=== PATIENT | male | born 1935 | race Caucasian/White ===

== ENCOUNTER → 2016-08-14 | Outpatient (REF) | payer MEDICARE | LOC: M LAB REF 12:20 | PROVIDERS: ATTEND Physician Assistant Medical | DX: J02.9 Acute pharyngitis, unspecified (principal) ==

== ENCOUNTER → 2016-09-20 07:20 | Emergency (ER) | payer MEDICARE ==
[~2016-09-20 07:20] MED LIST: ASPI81TA85 PO; CIPR500T3 PO; COLA100C3 PO; MULT1CHW39 PO; OXYC1TAB23 PO; PYRI200T5 PO; TAMSULOSIN; VITA100037 PO
== END | disposition left against medical advice (07) ==
LOC: M ED 07:20
DX: Z53.29 Procedure and treatment not carried out because of patient's decision for other reasons (principal)

== ENCOUNTER 2016-09-20 07:22 | Emergency (ER) | payer MEDICARE ==
[~2016-09-20] VITALS: Ht 170.2 cm; Wt 73.6 kg
[2016-09-20] MEDS ORDERED: TAMSULOSIN (07:35)
[2016-09-20] MEDS ORDERED: ASPI81TA85 PO (07:35)
[2016-09-20] MEDS ORDERED: MORPHINE 2 MG/ML 1ML SYRINGE IV ONE (09:00)
[2016-09-20 09:38] LABS: BASO % 0.3 % (0.0-1.0); EOS # 0.1 K/mm3 (0.0-0.50); EOS % 0.9 % (0.0-3.0); LARGE UNSTAINED CELL # 0.1 K/mm3 (0.0-0.4); LARGE UNSTAINED CELL % 0.6 % (0.0-4.0); LYMPH % 6.2 % (24.0-44.0); MEAN CORPUSCULAR HEMOGLOBIN 30.6 pg (27.0-33.0); MEAN CORPUSCULAR HGB CONC 33.4 g/dl (32.0-36.5); MEAN CORPUSCULAR VOLUME 91.6 fl (80.0-96.0); MONO # 0.7 K/mm3 (0.0-0.8); MONO % 4.3 % (0.0-5.0); NEUTROPHILS # 13.4 K/mm3 (1.8-7.7); NEUTROPHILS % 87.6 % (36.0-66.0); PLATELET COUNT, AUTOMATED 191 k/mm3 (150-450); RED CELL DISTRIBUTION WIDTH 12.7 % (11.5-14.5); WHITE BLOOD COUNT 15.2 K/mm3 (4.0-10.0)
[2016-09-20 09:54] LABS: ANION GAP 5 MEQ/L (8-16); BLOOD UREA NITROGEN 14 MG/DL (7-18); CALCIUM LEVEL 9.9 MG/DL (8.8-10.2); CARBON DIOXIDE LEVEL 29 MEQ/L (21-32); CHLORIDE LEVEL 102 MEQ/L (98-107); CREATININE FOR GFR 1.17 MG/DL (0.70-1.30); GLOMERULAR FILTRATION RATE > 60.0 (>35); GLUCOSE, FASTING 119 MG/DL (83-110); SODIUM LEVEL 136 MEQ/L (136-145)
--- NOTE | 2016-09-20 10:16 | REP ---
CT ABDOMEN AND PELVIS WITHOUT CONTRAST: CT abdomen and pelvis performed without oral or IV contrast, with sagittal and coronal reconstruction images performed. COMPARISON: 07/04/2011 There are a couple calcified granulomas in the right lower lobe. There are mild interstitial fibrotic changes in the right middle lobe. There is a small hiatal hernia. The liver is grossly unremarkable. Metallic clips are seen in the gallbladder fossa, status post cholecystectomy. Calcified granulomas are seen in the spleen. The adrenals and pancreas are grossly unremarkable. The kidneys demonstrate no stone. There does appear to be mild left hydroureteronephrosis. However, there is no evidence of ureteral or bladder stone. This is possibly due to a recently passed stone. There are moderate atherosclerotic calcifications of the abdominal aorta without aneurysm. There is no adenopathy. There is no free air. There is no bowel thickening. There is no evidence of appendicitis. A tiny amount of free fluid is seen in the pelvis. There is no pelvic mass. There are degenerative changes of the spine. There is sigmoid diverticulosis without definite acute diverticulitis. IMPRESSION: Mild left hydroureteronephrosis. However, there is no evidence of renal, ureteral or bladder calculus. The left hydroureteronephrosis is likely due to a recently passed stone. No other acute abnormality. Signed by Adrian Ivy MD 09/20/2016 05:19 P
[2016-09-20] MEDS ORDERED: cefTRIAXone SOD 1 GM in D5W MINI-BAG PLUS 50 ML IV ONE (10:30)
[2016-09-20] MEDS ORDERED: OXYC1TAB23 PO (10:42)
[2016-09-20] MEDS ORDERED: COLA100C3 PO (10:44)
[2016-09-20] MEDS ORDERED: PYRI200T5 PO (10:45)
[2016-09-20] MEDS ORDERED: CIPR500T3 PO (11:24)
[2016-09-20 11:41] VITALS: BP 141/62
[2016-09-20] MEDS ORDERED: ACETAMINOPHEN TAB 650MG DOSE (2X325MG) PO ONE (11:45)
[2016-09-21] MEDS ORDERED: MULT1CHW39 PO (10:18)
[2016-09-21] MEDS ORDERED: VITA100037 PO (10:18)
== END 2016-09-20 12:07 | disposition home or self-care (01) ==
LOC: M ED 08:17
DX: N39.0 Urinary tract infection, site not specified (principal); N13.30 Unspecified hydronephrosis; Z95.0 Presence of cardiac pacemaker; Z79.82 Long term (current) use of aspirin; Z88.5 Allergy status to narcotic agent
CPT/HCPCS: 74176; 80048; 81001; 85025; 87088; 87186; 96365; 96375; 99283; J0696

== ENCOUNTER 2016-09-21 10:04 | Emergency (ER) | payer MEDICARE ==
[~2016-09-21] VITALS: Ht 170.2 cm; Wt 74.9 kg
[~2016-09-21 10:04] MED LIST changes: -MULT1CHW39 PO; -VITA100037 PO
[2016-09-21] MEDS ORDERED: VITA100037 PO (10:18)
[2016-09-21] MEDS ORDERED: MULT1CHW39 PO (10:18)
[2016-09-21 11:34] LABS: BASO % 0.3 % (0.0-1.0); EOS # 0.2 K/mm3 (0.0-0.50); EOS % 1.7 % (0.0-3.0); LARGE UNSTAINED CELL # 0.2 K/mm3 (0.0-0.4); LARGE UNSTAINED CELL % 1.2 % (0.0-4.0); LYMPH # 1.6 K/mm3 (1.5-4.5); LYMPH % 10.1 % (24.0-44.0); MEAN CORPUSCULAR HEMOGLOBIN 30.5 pg (27.0-33.0); MEAN CORPUSCULAR HGB CONC 33.4 g/dl (32.0-36.5); MEAN CORPUSCULAR VOLUME 91.4 fl (80.0-96.0); MONO # 0.7 K/mm3 (0.0-0.8); MONO % 4.9 % (0.0-5.0); NEUTROPHILS # 11.6 K/mm3 (1.8-7.7); NEUTROPHILS % 81.7 % (36.0-66.0); PLATELET COUNT, AUTOMATED 177 k/mm3 (150-450); RED CELL DISTRIBUTION WIDTH 12.9 % (11.5-14.5); WHITE BLOOD COUNT 14.2 K/mm3 (4.0-10.0)
[2016-09-21 11:35] LABS: MICROSCOPIC INDICATED? MAN YES (NO)
[2016-09-21 11:47] LABS: ANION GAP 4 MEQ/L (8-16); BLOOD UREA NITROGEN 17 MG/DL (7-18); CALCIUM LEVEL 9.5 MG/DL (8.8-10.2); CARBON DIOXIDE LEVEL 31 MEQ/L (21-32); CHLORIDE LEVEL 103 MEQ/L (98-107); CREATININE FOR GFR 1.22 MG/DL (0.70-1.30); GLOMERULAR FILTRATION RATE > 60.0 (>35); GLUCOSE, FASTING 97 MG/DL (83-110); POTASSIUM SERUM 4.2 MEQ/L (3.5-5.1); SODIUM LEVEL 138 MEQ/L (136-145)
--- NOTE | 2016-09-21 12:10 | REP ---
Urinary tract sonography: History: Reassess hydronephrosis on the left seen on recent CT scan 09/20/2016. Sonographic findings: Scanning at the level of the urinary bladder shows no abnormality. Renal cortical echogenicity pattern is normal and renal contours are smooth bilaterally. There is no evidence of hydronephrosis on either side by ultrasound. No intrarenal stone, mass or calculus is appreciated. The right kidney measures 9.6 x 5.2 x 6.0 cm. Left renal dimensions are 10.0 x 4.7 x 4.9 cm. Impression: No hydronephrosis seen. Unremarkable urinary tract sonography. Signed by Emilio Díaz MD 09/21/2016 12:45 P
[2016-09-21 12:21] LABS: SQUAMOUS EPITHELIAL CELL URINE SMALL AMOUNT /hpf (SMALL AMT); TRANSITIONAL EPI CELLS, URINE SMALL AMOUNT /hpf; WBC, URINE TNTC /hpf (0-3)
[2016-09-21 12:22] LABS: BACTERIA, URINE SMALL AMOUNT; HYALINE CAST, URINE NONE SEEN /lpf (0-1); MICROSCOPIC EXAM PERFORMED
[2016-09-21 12:44] VITALS: BP 146/69
== END 2016-09-21 12:53 | disposition home or self-care (01) ==
LOC: M ED 10:47
DX: N10 Acute pyelonephritis (principal); N40.1 Benign prostatic hyperplasia with lower urinary tract symptoms; Z95.0 Presence of cardiac pacemaker; Z79.82 Long term (current) use of aspirin; Z90.49 Acquired absence of other specified parts of digestive tract; Z79.899 Other long term (current) drug therapy; Z88.5 Allergy status to narcotic agent

== ENCOUNTER → 2016-10-14 | Outpatient (REF) | payer MEDICARE ==
[~2016-10-14] MED LIST changes: -COLA100C3 PO; +COLA100C5 PO; +FINA5TAB2 PO; +FLOM5CAP PO; +MULT1CHW39 PO; +OMEP40CA2 PO; +PYRI1TAB5 PO; -PYRI200T5 PO; +VITA100067 PO
== END ==
LOC: M SMT 11:43
PROVIDERS: ATTEND Urology
DX: N39.0 Urinary tract infection, site not specified (principal)

== ENCOUNTER 2016-12-05 07:53 | Outpatient (CLI) | payer MEDICARE ==
[~2016-12-05] VITALS: Ht 170.2 cm; Wt 72.6 kg
[2016-12-05] MEDS ORDERED: LIDOCAINE 2% INJ 100 MG/5 ML SDV (FOR ANES.) As Ordered ONE (08:37)
[2016-12-05] MEDS ORDERED: PROPOFOL 500 MG/50 ML VIAL As Ordered ONE (08:37)
[2016-12-05] MEDS ORDERED: LR 1,000 ML IV SCH (08:45)
--- NOTE | 2016-12-05 10:06 | ROOR ---
Patient Name: Troy Vale Procedure Date: 12/05/2016 9:30 AM Date of : 1935 Age: 81 Room: [facility] Gender: Male Note Status: Finalized Procedure: Upper GI endoscopy Indications: Dysphagia Providers: Raymundo Smith MD Referring MD: LUMA HARDIN MD Requesting Provider: Medicines: Monitored Anesthesia Care Complications: No immediate complications. Procedure: Pre-Anesthesia Assessment: - Prior to the procedure, a History and Physical was performed, and patient medications and allergies were reviewed. The patient is competent. The risks and benefits of the procedure and the sedation options and risks were discussed with the patient. All questions were answered and informed consent was obtained. Patient identification and proposed procedure were verified by the physician, the nurse and the anesthesiologist in the procedure room. Mental Status Examination: alert and oriented. Airway Examination: normal oropharyngeal airway and neck mobility. CV Examination: regular rate and rhythm. Prophylactic Antibiotics: The patient does not require prophylactic antibiotics. Prior Anticoagulants: The patient has taken no previous anticoagulant or antiplatelet agents. ASA Grade Assessment: II - A patient with mild systemic disease. After reviewing the risks and benefits, the patient was deemed in satisfactory condition to undergo the procedure. The anesthesia plan was to use monitored anesthesia care (MAC). Immediately prior to administration of medications, the patient was re-assessed for adequacy to receive sedatives. The heart rate, respiratory rate, oxygen saturations, blood pressure, adequacy of pulmonary ventilation, and response to care were monitored throughout the procedure. The physical status of the patient was re-assessed after the procedure. The Endoscope was introduced through the mouth, and advanced to the second part of duodenum. The upper GI endoscopy was accomplished without difficulty. The patient tolerated the procedure well. Findings: One moderate benign-appearing, intrinsic stenosis was found 40 cm from the incisors. This measured 1.5 cm (inner diameter) x less than one cm (in length) and was traversed. A TTS dilator was passed through the scope. Dilation with an 18-19-20 mm balloon dilator was performed to 20 mm. The dilation site was examined and showed no bleeding, mucosal tear or perforation. Estimated blood loss was minimal. The entire examined stomach was normal. The first portion of the duodenum and second portion of the duodenum were normal. Impression: - Benign-appearing esophageal stenosis. Dilated. - Normal stomach. - Normal first portion of the duodenum and second portion of the duodenum. - No specimens collected. Recommendation: - Discharge patient to home. - Resume previous diet. - Recommend acid suppression medication indefinitely. Raymundo Smith MD 12/05/2016 10:05:49 AM Number of Addenda: 0 Note Initiated On: 12/05/2016 9:30 AM Estimated Blood Loss: Estimated blood loss was minimal.
[2016-12-05 10:20] VITALS: BP 133/72
== END 2016-12-05 10:35 | disposition home or self-care (01) ==
LOC: M OPP 07:53
PROVIDERS: ATTEND Surgery
DX: R13.10 Dysphagia, unspecified (principal); K22.2 Esophageal obstruction; K57.30 Diverticulosis of large intestine without perforation or abscess without bleeding; E11.9 Type 2 diabetes mellitus without complications; K44.9 Diaphragmatic hernia without obstruction or gangrene; R00.8 Other abnormalities of heart beat; Z87.440 Personal history of urinary (tract) infections; Z87.442 Personal history of urinary calculi; Z95.0 Presence of cardiac pacemaker; Z88.5 Allergy status to narcotic agent; Z79.82 Long term (current) use of aspirin; Z79.899 Other long term (current) drug therapy

== ENCOUNTER → 2017-11-28 | Outpatient (REF) | payer MEDICARE | LOC: M LAB REF 12:56 | DX: J02.9 Acute pharyngitis, unspecified (principal) | CPT/HCPCS: 87081 ==

== ENCOUNTER → 2018-01-23 | Outpatient (CLI) | payer MEDICARE | LOC: M WUC 11:44 | DX: M54.31 Sciatica, right side (principal) | CPT/HCPCS: 72110 ==

== ENCOUNTER → 2018-10-22 | Outpatient (CLI) | payer MEDICARE ==
[~2018-10-22] MED LIST changes: +ASPI81CH33 PO; +FLOM0.4C39 PO; -FLOM5CAP PO; -MULT1CHW39 PO; +MULT200T7 PO; +MULTTAB62 PO; +NITR0.4D6 TD; +NITR0.4S14 SL; +OMEP-218 PO; +PEG1POW PO; +VITA1TAB23 PO; +VITA400C56 PO; +VITACRE10 EX; +VITAD1000T PO
--- NOTE | 2018-10-22 11:14 | REP ---
Acute abdominal series three views including PA chest and supine upright abdomen: PA chest: Comparison is 12/15/2009. The lung moran are clear. Cardiac size is normal. The le, mediastinum, skeletal structures are unremarkable. There is a dual-chamber pacemaker, unchanged. There is no free subdiaphragmatic air. Impression: Essentially negative PA and lateral chest. There is no interval change. Abdomen, supine upright views: The bowel gas pattern is normal. There are right upper quadrant surgical clips. There are skin lance superimposed over the right hip. There are surgical clips in the pelvis. There is an ovoid 1.2 by 7.0 cm calculus in the pelvis on the right, likely a phlebolith. This is not within the right ureter on a a comparison CT dated 09/20/2016, and is likely a phlebolith. Impression: Normal bowel gas pattern. Electronically Signed by Adrian Hudson MD 10/22/2018 11:05 A
== END ==
LOC: M ADAMS 10:00
PROVIDERS: ATTEND Physician Assistant
DX: K59.00 Constipation, unspecified (principal); R10.84 Generalized abdominal pain; Z95.0 Presence of cardiac pacemaker

== ENCOUNTER → 2018-10-22 | Outpatient (CLI) | payer MEDICARE ==
[2018-10-22 13:06] LABS: BASO % 0.2 % (0.0-1.0); EOS # 0.1 10^3/uL (0.0-0.50); EOS % 0.8 % (0.0-3.0); LYMPH # 1.8 10^3/uL (1.5-4.5); LYMPH % 13.9 % (24.0-44.0); MEAN CORPUSCULAR HEMOGLOBIN 30.4 pg (27.0-33.0); MEAN CORPUSCULAR HGB CONC 32.6 g/dl (32.0-36.5); MEAN CORPUSCULAR VOLUME 93.1 fl (80.0-96.0); MONO # 1.1 10^3/uL (0.0-0.8); MONO % 8.5 % (0.0-5.0); NEUTROPHILS # 9.7 10^3/uL (1.8-7.7); NEUTROPHILS % 76.1 % (36.0-66.0); PLATELET COUNT, AUTOMATED 251 10^3/uL (150-450); RED BLOOD COUNT 4.94 10^6/uL (4.30-6.10); WHITE BLOOD COUNT 12.8 10^3/uL (4.0-10.0)
[2018-10-22 13:16] LABS: ALBUMIN 3.9 GM/DL (3.2-5.2); ALT/SGPT 20 U/L (12-78); BILIRUBIN,TOTAL 0.7 MG/DL (0.2-1.0); BLOOD UREA NITROGEN 15 MG/DL (7-18); CALCIUM LEVEL 9.2 MG/DL (8.8-10.2); CARBON DIOXIDE LEVEL 30 MEQ/L (21-32); CHLORIDE LEVEL 106 MEQ/L (98-107); GLOMERULAR FILTRATION RATE > 60.0 (>35); GLUCOSE, FASTING 123 MG/DL (70-100); POTASSIUM SERUM 4.9 MEQ/L (3.5-5.1); SODIUM LEVEL 140 MEQ/L (136-145); TOTAL PROTEIN 6.8 GM/DL (6.4-8.2)
== END ==
LOC: M LABDRWAD 10:03
PROVIDERS: ATTEND Physician Assistant
DX: K59.00 Constipation, unspecified (principal); R10.84 Generalized abdominal pain

== ENCOUNTER 2018-10-23 14:37 | Inpatient (IN) | payer MEDICARE ==
[~2018-10-23] VITALS: Ht 170.2 cm; Wt 72.9 kg
[~2018-10-23 14:37] MED LIST changes: -ASPI81CH33 PO; -MULTTAB62 PO; -NITR0.4S14 SL; -OMEP-218 PO; -PEG1POW PO; -VITA400C56 PO; -VITAD1000T PO
[2018-10-23] MEDS ORDERED: OMEP-218 PO (14:54)
[2018-10-23] MEDS ORDERED: PEG1POW PO (14:54)
[2018-10-23] MEDS ORDERED: NS 1,000 ML IV ONE (16:00)
[2018-10-23] MEDS ORDERED: ONDANSETRON 4MG/2ML VIAL (J2405) IV ONE (16:00)
[2018-10-23] MEDS: GASTROGRAFIN SOLUTION 30ML PO SCH ×2 (16:17→16:54)
[2018-10-23 16:29] LABS: BASO # 0.1 10^3/uL (0.0-0.2); BASO % 0.3 % (0.0-1.0); EOS % 0.1 % (0.0-3.0); HEMATOCRIT 45.5 % (42.0-52.0); LYMPH % 12.9 % (24.0-44.0); MEAN CORPUSCULAR HEMOGLOBIN 30.4 pg (27.0-33.0); MEAN CORPUSCULAR VOLUME 92.3 fl (80.0-96.0); MONO # 1.5 10^3/uL (0.0-0.8); MONO % 9.9 % (0.0-5.0); NEUTROPHILS # 11.6 10^3/uL (1.8-7.7); PLATELET COUNT, AUTOMATED 238 10^3/uL (150-450); RED BLOOD COUNT 4.93 10^6/uL (4.30-6.10); WHITE BLOOD COUNT 15.3 10^3/uL (4.0-10.0)
[2018-10-23 16:55] LABS: ALBUMIN 3.6 GM/DL (3.2-5.2); BILIRUBIN,DIRECT 0.6 MG/DL (0.0-0.2); CREATININE FOR GFR 1.37 MG/DL (0.70-1.30); GLOMERULAR FILTRATION RATE 52.6 (>35); POTASSIUM SERUM 4.5 MEQ/L (3.5-5.1); TOTAL PROTEIN 6.8 GM/DL (6.4-8.2)
[2018-10-23] MEDS ORDERED: ISOVUE-370 76% 100ML VIAL (Q9967) As Ordered ONE (17:12)
--- NOTE | 2018-10-23 18:23 | REPVR ---
EXAM: CT Abdomen and Pelvis With Contrast EXAM DATE/TIME: 10/23/2018 5:51 PM CLINICAL HISTORY: 83 years old, male; Constipation; Abdominal pain; Additional info: Left sided abd pain, no bm in 7 days, R/O sbo TECHNIQUE: Imaging protocol: Axial computed tomography images of the abdomen and pelvis with intravenous contrast. Coronal and sagittal reformatted images were created and reviewed. Radiation optimization: All CT scans at this facility use at least one of these dose optimization techniques: automated exposure control; mA and/or kV adjustment per patient size (includes targeted exams where dose is matched to clinical indication); or iterative reconstruction. Contrast material: ISOVUE 370; Contrast volume: 100 ml; Contrast route: IV; COMPARISON: DX ABDOMEN, FLAT/UPRIGHT, PA CHES 10/22/2018 9:54 AM FINDINGS: Lungs: There is bibasilar compressive atelectasis. Liver: There is a diffuse decrease in hepatic parenchymal density, consistent with fatty infiltration. Gallbladder and bile ducts: There has been a cholecystectomy. Pancreas: There is diffuse pancreatic atrophy. Spleen: Normal. No splenomegaly. Adrenals: Normal. No mass. Kidneys and ureters: Normal. No hydronephrosis. Stomach and bowel: Gross mesenteric inflammation between bowel loops in the left upper quadrant with an extraluminal soft tissue and gas collection measuring 2.5 cm consistent with an interloop abscess possibly related to localized perforation or small bowel diverticulitis. Bowel sutures demonstrated in the distal colon status post sigmoid resection. Appendix: No evidence of appendicitis. Intraperitoneal space: Normal. No free air. No significant fluid collection. Vasculature: No abdominal aortic aneurysm. Moderate atherosclerosis. Lymph nodes: Numerous inflammatory lymph nodes are demonstrated in the regional mesentery in the left upper quadrant measuring up to 10 mm. Bladder: Unremarkable as visualized. Reproductive: The prostate gland demonstrates mild hyperplasia. Bones/joints: Mild central spinal stenosis at L4-5.The spine demonstrates moderate degenerative changes. Soft tissues: Unremarkable. IMPRESSION: 1. There is a diffuse decrease in hepatic parenchymal density, consistent with fatty infiltration. 2. There has been a cholecystectomy. 3. There is diffuse pancreatic atrophy. 4. Gross mesenteric inflammation between bowel loops in the left upper quadrant with an extraluminal soft tissue and gas collection measuring 2.5 cm consistent with an interloop abscess possibly related to localized perforation or small bowel diverticulitis. 5. Mild prostatic hyperplasia. Electronically signed by: Michael Humphrey On 10/23/2018 18:23:30 PM
[2018-10-23] MEDS ORDERED: PIPERACILLIN/TAZOBACTAM SOD 3.375 GM in D5W MINI-BAG PLUS 50 ML IV ONE (19:00)
[2018-10-23] MEDS ORDERED: ASPI81CH33 PO (19:23)
[2018-10-23] MEDS ORDERED: MULTTAB62 PO (19:23)
[2018-10-23] MEDS ORDERED: NITR0.4S14 SL (19:23)
[2018-10-23] MEDS ORDERED: VITAD1000T PO (19:25)
[2018-10-23] MEDS ORDERED: VITA400C56 PO (19:25)
[2018-10-23] MEDS ORDERED: ACETAMINOPHEN TAB 650MG DOSE (2X325MG) PO PRN (19:30)
[2018-10-23] MEDS ORDERED: ONDANSETRON 4MG/2ML VIAL (J2405) IV PRN (19:30)
[2018-10-23] MEDS ORDERED: MORPHINE 4 MG/ML 1ML VIAL/SYRINGE (J2270) IV PRN (19:30)
[2018-10-23] MEDS: LR 1,000 ML IV SCH (19:53)
[2018-10-23] MEDS: PANTOPRAZOLE 40MG INJ (PROTONIX) (C9113) IV SCH (21:00)
[2018-10-23] MEDS: TAMSULOSIN 0.4 MG CAP PO SCH (21:00)
[2018-10-23] MEDS: SENOKOT S TAB PO SCH (21:00)
[2018-10-23] MEDS ORDERED: POLYSPORIN TOPICAL OINTMENT 15GM As Ordered ONE (22:30)
[2018-10-23] MEDS ORDERED: NEOSPORIN OINT 0.9 GM PKT (FLOOR STOCK) As Ordered ONE (22:32)
[2018-10-23 22:45] VITALS: BP 158/72
--- NOTE | 2018-10-23 23:05 | HPEPDOC ---
General Surgery H&P Date of Admission Oct 23, 2018 Attending Physician: ADA KHOURY MD History and Physical CHIEF COMPLAINT: Left upper quadrant abdominal pain HISTORY OF PRESENT ILLNESS: Patient presents to the emergency room with 1 week history of left-sided abdominal pain, not having any bowel movement during that time, anorexia and bloating though he denies any nausea or vomiting. He is able to tolerate small amounts of food that he ate throughout that time but he did not feel hungry nor have any appetite due to the discomfort and bloating sensation that he felt. He denies associated fevers or chills or diarrhea. He was seen at an urgent care setting 2 days ago was given MiraLAX and 8 this without any relief of symptoms and thus he presents to the emergency room today. In the area was evaluated was found to have evidence of what most likely is diverticulitis. Patient has prior history of recurrent diverticulitis for which she had laparoscopic assisted sigmoid colectomy done by Dr. Smith in 2004. Since then patient has not had any problems with recurrence. He is last colonoscopy was also done by Dr. Smith in 2013 showing diverticulosis in the descending colon. ALLERGIES: Please see below. HOME MEDICATIONS: Please see below. PAST MEDICAL HISTORY: 1. 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 2. History of kidney stones. 3. history of prostatism 4. remote history of peptic ulcer disease 5. PAST SURGICAL HISTORY: 1. Pacemaker placement 2007 2. Laparoscopic sigmoid colectomy with Procto-colic anastomosis in 2004 3. Colonoscopy 2002, 2004, 2013 4. Upper endoscopy in 2013 and 2016 5. Laparoscopic cholecystectomy in 1999 6. Bilateral open inguinal hernia repair with mesh 7.Blepharoplasty 8. ESWL 9. PERSONAL/SOCIAL HISTORY: [Denies smoking, alcohol use, or recreational drug use]. REVIEW OF SYSTEMS: GENERAL: [Denies chills, fatigue, fever, weight gain and weight loss]. HEENT: [Denies blurred vision and double vision. Denies ear symptoms. Denies hoarseness]. NECK: [Denies any neck pain]. CARDIOVASCULAR: [Denies chest pain and palpitations]. MUSCULOSKELETAL: [Denies arthralgias, back pain and thrombophlebitis]. SKIN: [Denies rash]. NEUROLOGIC: [Denies headache, stroke and transient ischemic attack]. PSYCHIATRIC: [Denies anxiety and depression]. ENDOCRINE: [Denies thyroid disease]. HEMATOLOGY/ONCOLOGY: [Denies any bleeding or clotting disorder]. HEART: [Denies any chest pains, palpitations, paroxysmal dyspnea, orthopnea]. PULMONARY: [Denies chronic cough, dyspnea and wheezing]. GASTROINTESTINAL: [Denies rectal bleeding, family history of colon cancer, constipation, diarrhea, dysphagia, heartburn and jaundice]. GENITOURINARY: [Denies dysuria, frequency, hematuria and nocturia]. ENDOCRINE: [Denies polydipsia, polyphagia, polyuria, heat or cold intolerance]. INFECTIOUS: [Denies any recent upper respiratory tract infection, UTI, need for use of antibiotics]. NUTRITION: [Reports good appetite]. PHYSICAL EXAMINATION: VITAL SIGNS: Please see below. GENERAL APPEARANCE: [Patient seen at bedside, appears comfortable]. [Awake, alert, oriented]. HEENT: [Normocephalic, atraumatic. Hanson palpebral conjunctivae. Anicteric sclerae. Lips moist]. CHEST: [No chest wall abnormalities. Normal respiratory motion/effort]. NECK: [Supple. No thyromegaly. No lymphadenopathies]. LUNGS: [Lung sounds are clear to auscultation bilaterally. No wheezing appreciated]. HEART: [No chest wall abnormalities. Heart rate and rhythm are regular with no murmurs]. ABDOMEN: His abdomen is noticeably distended, quiet abdomen. I noted healed laparoscopic port sites as well as the left lower quadrant transverse incision from his sigmoid colectomy as well as laparoscopic port sites from his laparoscopic cholecystectomy and bilateral groin incisions from his inguinal hernia repair. I did not feel any associated hernias were all his incisions no recurrent inguinal hernias. He is most tender over the left upper quadrant area with minimal guarding. Tender on light palpation. He is nontender on the right lower abdomen and right upper abdomen. EXTREMITIES: [Extremities have no deformities. No edema identified]. NEUROLOGICAL: Awake, alert, oriented. ANCILLARIES: . LABORATORY DATA: Please see below. MICROBIOLOGY: Please see below. IMAGING: CT scan abdomen and pelvis Stomach and bowel: Gross mesenteric inflammation between bowel loops in the left upper quadrant with an extraluminal soft tissue and gas collection measuring 2.5 cm consistent with an interloop abscess possibly related to localized perforation or small bowel diverticulitis. Bowel sutures demonstrated in the distal colon status post sigmoid resection. Appendix: No evidence of appendicitis. Intraperitoneal space: Normal. No free air. No significant fluid collection. Vasculature: No abdominal aortic aneurysm. Moderate atherosclerosis. Lymph nodes: Numerous inflammatory lymph nodes are demonstrated in the regional mesentery in the left upper quadrant measuring up to 10 mm. IMPRESSION AND PLAN: Localized contained perforation possibly small bowel related versus descending colon diverticulitis with a small phlegmon versus developing abscess Associated ileus from this Patient looks distended and has tenderness mostly centered over the left upper quadrant area consistent with an area of inflammation and localized peritonitis over the area related to the site of inflammation, possible diverticular perforation. There may be deforming abscess between loops of bowels. Despite these findings he does not look toxic, not having signs of severe systemic inflammatory response. The tenderness is mostly localized over the left upper abdomen. Given his findings we'll try nonoperative therapy with IV antibiotics and short period of observation if there is improvement. He may need to repeat CT scan to look for having us for drainage of an abscess later on. I did tell the patient that if the nonoperative management fails, he starts developing fever, gets more sick, the localized inflammation progresses to generalized p eritonitis that he may need surgery for this. He has been started in the emergency room and Zosyn. I'll continue this for now and should the inadequate coverage. I'll keep him nothing by mouth and continue IV fluid hydration. Vital Signs Vital Signs Date Time Temp Pulse Resp B/P (MAP) Pulse Ox O2 Delivery O2 Flow Rate FiO2 10/23/18 22:41 99.3 88 18 148/65 (92) 96 10/23/18 20:25 Room Air Laboratory Data Labs 24H Laboratory Tests 2 10/23/18 16:15: Anion Gap 7L, Glomerular Filtration Rate 52.6, Calcium Level 9.0, Aspartate Amino Transf (AST/SGOT) 16, Alanine Aminotransferase (ALT/SGPT) 17, Alkaline Phosphatase 71, Total Bilirubin 2.0#H, Direct Bilirubin 0.6H, Total Protein 6.8, Albumin 3.6, Albumin/Globulin Ratio 1.13, Lipase 117 10/23/18 16:16: Immature Granulocyte % (Auto) 0.8, White Blood Count 15.3H, Red Blood Count 4.93, Hemoglobin 15.0, Hematocrit 45.5, Mean Corpuscular Volume 92.3, Mean Corpuscular Hemoglobin 30.4, Mean Corpuscular Hemoglobin Concent 33.0, Red Cell Distribution Width 12.7, Platelet Count 238, Neutrophils (%) (Auto) 76.0H, Ly mphocytes (%) (Auto) 12.9L, Monocytes (%) (Auto) 9.9H, Eosinophils (%) (Auto) 0.1, Basophils (%) (Auto) 0.3, Neutrophils # (Auto) 11.6H, Lymphocytes # (Auto) 2.0, Monocytes # (Auto) 1.5H, Eosinophils # (Auto) 0.0, Basophils # (Auto) 0.1, Nucleated Red Blood Cells % (auto) 0.0, Lactic Acid Level 1.6 10/23/18 19:10: Urine Color YELLOW, Urine Appearance CLEAR, Urine pH 6.0, Urine Specific Eugene 1.039, Urine Protein NEGATIVE, Urine Glucose (UA) NEGATIVE, Urine Ketones 1+H, Urine Blood NEGATIVE, Urine Nitrite NEGATIVE, Urine Bilirubin NEGATIVE, Urine Urobilinogen 0.2, Urine Leukocyte Esterase NEGATIVE, Urine WBC (Auto) 0, Urine RBC (Auto) 2, Urine Hyaline Casts (Auto) 0, Urine Bacteria (Auto) NEGATIVE, Urine Squamous Epithelial Cells 0, Urine Sperm (Auto) CBC/BMP Laboratory Tests 10/23/18 16:15 10/23/18 16:16 Red Blood Count 4.93, Mean Corpuscular Volume 92.3, Mean Corpuscular Hemoglobin 30.4, Mean Corpuscular Hemoglobin Concent 33.0, Red Cell Distribution Width 12.7, Neutrophils (%) (Auto) 76.0 H, Lymphocytes (%) (Auto) 12.9 L, Monocytes (%) (Auto) 9.9 H, Eosinophils (%) (Auto) 0.1, Basophils (%) (Auto) 0.3, Neutrophils # (Auto) 11.6 H, Lymphocytes # (Auto) 2.0, Monocytes # (Auto) 1.5 H, Eosinophils # (Auto) 0.0, Basophils # (Auto) 0.1 Home Medications Scheduled Ascorbic Acid (Vitamin C) 250 Mg Tab, 250 PO QHS, (Reported) Aspirin (Aspirin) 81 Mg Tab.chew, 81 MG PO QHS, (Reported) Multivitamin with Minerals (Multivitamins with Minerals) 1 Each Tablet, 1 TAB PO QHS, (Reported) Nitroglycerin (Nitroglycerin) 0.4 Mg Tab.subl, 0.4 MG SL NITRO, (Reported) Omeprazole (Omeprazole) 20 Mg Capsule.dr, 20 MG PO QHS, (Reported) Polyethylene Glycol 3350 (Polyethylene Glycol 3350) 17 Gm Powd.pack, 1 PKT PO DAILY, (Reported) Tamsulosin HCl (Flomax) 0.4 Mg Cap, 0.4 MG PO QHS, (Reported) Vitamin D (Vitamin D3) 1,000 Unit Tablet, 1,000 UNITS PO QHS, (Reported) Vitamin E (Vitamin E) 400 Unit Capsule, 400 UNIT PO QHS, (Reported) Allergies Coded Allergies: codeine (Verified Adverse Reaction, Unknown, 10/23/18) abd cramping A-FIB/CHADSVASC A-FIB History Current/History of A-Fib/PAF?: No Current PO Anticoag Therapy: No ADA KHOURY MD Oct 23, 2018 22:56
[2018-10-23] MEDS: PIPERACILLIN/TAZOBACTAM SOD 3.375 GM in D5W MINI-BAG PLUS 50 ML IV SCH (23:37)
[2018-10-24] MEDS: PIPERACILLIN/TAZOBACTAM SOD 3.375 GM in D5W MINI-BAG PLUS 50 ML IV SCH ×4 (05:49→23:55)
[2018-10-24] MEDS: LR 1,000 ML IV SCH ×2 (05:49→12:15)
[2018-10-24 06:00] VITALS: BP 143/57
[2018-10-24] MEDS: SENOKOT S TAB PO SCH ×2 (08:42→21:00)
[2018-10-24] MEDS: ENOXAPARIN 40 MG/0.4 ML SYRINGE (J1650) SC SCH (08:43)
[2018-10-24 09:47] LABS: BASO % 0.3 % (0.0-1.0); EOS # 0.1 10^3/uL (0.0-0.50); EOS % 0.6 % (0.0-3.0); HEMATOCRIT 41.5 % (42.0-52.0); HEMOGLOBIN 13.7 g/dl (13.5-17.5); LYMPH # 1.9 10^3/uL (1.5-4.5); LYMPH % 13.3 % (24.0-44.0); MEAN CORPUSCULAR HEMOGLOBIN 30.5 pg (27.0-33.0); MEAN CORPUSCULAR VOLUME 92.4 fl (80.0-96.0); MONO # 1.3 10^3/uL (0.0-0.8); MONO % 9.4 % (0.0-5.0); NEUTROPHILS # 10.6 10^3/uL (1.8-7.7); PLATELET COUNT, AUTOMATED 215 10^3/uL (150-450); RED BLOOD COUNT 4.49 10^6/uL (4.30-6.10); WHITE BLOOD COUNT 13.9 10^3/uL (4.0-10.0)
[2018-10-24 10:12] LABS: CALCIUM LEVEL 8.7 MG/DL (8.8-10.2); CREATININE FOR GFR 1.26 MG/DL (0.70-1.30); GLOMERULAR FILTRATION RATE 57.9 (>35); POTASSIUM SERUM 4.1 MEQ/L (3.5-5.1)
--- NOTE | 2018-10-24 13:40 | IPNPDOC ---
Subjective General Date/Time Seen The patient was seen on 10/24/18 at 13:38. Subject Chief Complaint/History The patient is a 83-year-old male admitted with a reason for visit of Diverticulitis Of Intestine W/Perforation Abscess. Patient has several loose bowel movements yesterday after being admitted. He felt much better after being able to move his bowels following 7 days that he was not able to do this. Certainly less distended. He is denying any nausea. He has minimal abdominal discomfort that he only feels when he is moving. He has been afebrile and hemodynamically stable. Current Medications Current Medications Current Medications Acetaminophen (Tylenol Tab) 650 mg Q4HP PRN PO MILD PAIN or TEMP > 101; Start 10/23/18 at 19:30 Diatrizoate Meglum/ Diatrizoate Sod (Gastrografin) 10 ml Q30M PO Last administered on 10/23/18at 16:54; Start 10/23/18 at 16:20; Stop 10/23/18 at 16:51; Status DC Enoxaparin Sodium (Lovenox) 40 mg DAILY SC Last administered on 10/24/18at 08:43; Start 10/24/18 at 09:00 Home Med (Med Rec Complete!) ASDIRECTED XX ; Start 10/23/18 at 19:30; Stop 10/23/18 at 19:35; Status DC Lactated Ringer's 1,000 ml @ 125 mls/hr Q8H IV Last administered on 10/24/18at 12:15; Start 10/23/18 at 20:00 Morphine Sulfate (Morphine Sulfate Inj) 4 mg Q2HP PRN IV SEVERE PAIN (PS 8-10); Start 10/23/18 at 19:30 Ondansetron HCl (ZOFRAN INJection) 4 mg Q6HP PRN IV NAUSEA OR VOMITING; Start 10/23/18 at 19:30 Pantoprazole Sodium (Protonix) 40 mg QHS IV ; Start 10/23/18 at 21:00 Piperacillin Sod/ Tazobactam Sod 3.375 gm/Dextrose 50 ml @ 50 mls/hr Q6H IV Last administered on 10/24/18at 12:15; Start 10/24/18 at 00:00 Senna/Docusate Sodium (Senokot S) 1 tab BID PO ; Start 10/23/18 at 21:00 Tamsulosin HCl (Flomax) 0.4 mg QHS PO ; Start 10/23/18 at 21:00 Allergies Coded Allergies: codeine (Verified Adverse Reaction, Unknown, 10/23/18) abd cramping Objective Physical Examination Examination GENERAL APPEARANCE:[Patient seen, laying in bed, awake, alert, and oriented. Comfortable, in no acute distress]. SKIN: [Warm and moist]. HEENT: [Normocephalic, atraumatic. [place] palpebral conjunctiva, anicteric sclerae. Lips and mucosa appear moist]. NECK: [Supple, no thyromegaly. No obvious jugular venous distention]. LUNGS: [Clear to auscultation bilaterally. No wheezing appreciated]. HEART: [No chest wall abnormalities. Regular rate and rhythm with no murmurs appreciated]. ABDOMEN: Abdomen is markedly less distended and protuberant as compared to . Abdomen is soft. Very minimal tenderness only in direct palpation over the left upper quadrant area with no further evidence of guarding. He is nontender on the other portions of the abdomen. EXTREMITIES: [Extremities have no deformities. No edema identified]. Vital Signs Vital Signs Date Time Temp Pulse Resp B/P (MAP) Pulse Ox O2 Delivery O2 Flow Rate FiO2 10/24/18 06:00 98.0 75 16 143/57 (85) 95 10/23/18 20:25 Room Air I&Os I&O- Last 24 Hours up to 6 AM 10/24/18 06:00 Intake Total 875 ml Output Total 650 ml Balance 225 ml Laboratory Data Labs 24H Laboratory Tests 2 10/23/18 16:15: Anion Gap 7L, Glomerular Filtration Rate 52.6, Calcium Level 9.0, Aspartate Amino Transf (AST/SGOT) 16, Alanine Aminotransferase (ALT/SGPT) 17, Alkaline Phosphatase 71, Total Bilirubin 2.0#H, Direct Bilirubin 0.6H, Total Protein 6.8, Albumin 3.6, Albumin/Globulin Ratio 1.13, Lipase 117 10/23/18 16:16: Immature Granulocyte % (Auto) 0.8, White Blood Count 15.3H, Red Blood Count 4.93, Hemoglobin 15.0, Hematocrit 45.5, Mean Corpuscular Volume 92.3, Mean Corpuscular Hemoglobin 30.4, Mean Corpuscular Hemoglobin Concent 33.0, Red Cell Distribution Width 12.7, Platelet Count 238, Neutrophils (%) (Auto) 76.0H, Lymphocytes (%) (Auto) 12.9L, Monocytes (%) (Auto) 9.9H, Eosinophils (%) (Auto) 0.1, Basophils (%) (Auto) 0.3, Neutrophils # (Auto) 11.6H, Lymphocytes # (Auto) 2.0, Monocytes # (Auto) 1.5H, Eosinophils # (Auto) 0.0, Basophils # (Auto) 0.1, Nucleated Red Blood Cells % (auto) 0.0, Lactic Acid Level 1.6 10/23/18 19:10: Urine Color YELLOW, Urine Appearance CLEAR, Urine pH 6.0, Urine Specific [place] 1.039, Urine Protein NEGATIVE, Urine Glucose (UA) NEGATIVE, Urine Ketones 1+H, Urine Blood NEGATIVE, Urine Nitrite NEGATIVE, Urine Bilirubin NEGATIVE, Urine Urobilinogen 0.2, Urine Leukocyte Esterase NEGATIVE, Urine WBC (Auto) 0, Urine RBC (Auto) 2, Urine Hyaline Casts (Auto) 0, Urine Bacteria (Auto) NEGATIVE, Urine Squamous Epithelial Cells 0, Urine Sperm (Auto) 10/24/18 09:28: Anion Gap 7L, Glomerular Filtration Rate 57.9, Calcium Level 8.7L, Immature Granulocyte % (Auto) 0.4, White Blood Count 13.9H, Red Blood Count 4.49, Hemoglobin 13.7, Hematocrit 41.5L, Mean Corpuscular Volume 92.4, Mean Corpuscular Hemoglobin 30.5, Mean Corpuscular Hemoglobin Concent 33.0, Red Cell Distribution Width 12.8, Platelet Count 215, Neutrophils (%) (Auto) 76.0H, Lymphocytes (%) (Auto) 13.3L, Monocytes (%) (Auto) 9.4H, Eosinophils (%) (Auto) 0.6, Basophils (%) (Auto) 0.3, Neutrophils # (Auto) 10.6H, Lymphocytes # (Auto) 1.9, Monocytes # (Auto) 1.3H, Eosinophils # (Auto) 0.1, Basophils # (Auto) 0.0, Nucleated Red Blood Cells % (auto) 0.0, Blood Urea Nitrogen 18, Creatinine 1.26, Sodium Level 138, Potassium Level 4.1, Chloride Level 105, Carbon Dioxide Level 26 CBC/BMP Laboratory Tests 10/23/18 16:15 10/23/18 16:16 Red Blood Count 4.93, Mean Corpuscular Volume 92.3, Mean Corpuscular Hemoglobin 30.4, Mean Corpuscular Hemoglobin Concent 33.0, Red Cell Distribution Width 12.7, Neutrophils (%) (Auto) 76.0 H, Lymphocytes (%) (Auto) 12.9 L, Monocytes (%) (Auto) 9.9 H, Eosinophils (%) (Auto) 0.1, Basophils (%) (Auto) 0.3, Neutro phils # (Auto) 11.6 H, Lymphocytes # (Auto) 2.0, Monocytes # (Auto) 1.5 H, Eosinophils # (Auto) 0.0, Basophils # (Auto) 0.1 10/24/18 09:28 Red Blood Count 4.49, Mean Corpuscular Volume 92.4, Mean Corpuscular Hemoglobin 30.5, Mean Corpuscular Hemoglobin Concent 33.0, Red Cell Distribution Width 12.8, Neutrophils (%) (Auto) 76.0 H, Lymphocytes (%) (Auto) 13.3 L, Monocytes (%) (Auto) 9.4 H, Eosinophils (%) (Auto) 0.6, Basophils (%) (Auto) 0.3, Neutrophils # (Auto) 10.6 H, Lymphocytes # (Auto) 1.9, Monocytes # (Auto) 1.3 H, Eosinophils # (Auto) 0.1, Basophils # (Auto) 0.0, Calcium Level 8.7 L Impression Acute diverticulitis with perforation, possible abscess The radiologist thinks the area perforations probably related to the small bowel. He does have multiple large bowel diverticula left over. Ileus seems to be resolving At this point he seems to be getting better with nonoperative therapy. Continue with IV antibiotics. I'll allow him clear liquids. All our plan is to repeat a CT scan on Friday to follow up on the possibility of an abscess forming over the left upper quadrant area and see if this is possibly amenable to percutaneous drainage. ADA KHOURY MD Oct 24, 2018 13:40
[2018-10-24 14:00] VITALS: BP 141/67
[2018-10-24 22:00] VITALS: BP 156/72
[2018-10-24] MEDS: PANTOPRAZOLE 40MG INJ (PROTONIX) (C9113) IV SCH (22:47)
[2018-10-24] MEDS: TAMSULOSIN 0.4 MG CAP PO SCH (22:47)
[2018-10-25] MEDS: LR 1,000 ML IV SCH ×3 (03:32→16:00)
[2018-10-25 06:00] VITALS: BP 155/73
[2018-10-25] MEDS: PIPERACILLIN/TAZOBACTAM SOD 3.375 GM in D5W MINI-BAG PLUS 50 ML IV SCH ×4 (06:06→23:53)
[2018-10-25 08:05] LABS: BASO % 0.3 % (0.0-1.0); EOS # 0.2 10^3/uL (0.0-0.50); EOS % 1.7 % (0.0-3.0); HEMATOCRIT 40.2 % (42.0-52.0); HEMOGLOBIN 13.4 g/dl (13.5-17.5); LYMPH # 1.3 10^3/uL (1.5-4.5); LYMPH % 12.7 % (24.0-44.0); MEAN CORPUSCULAR HEMOGLOBIN 30.4 pg (27.0-33.0); MEAN CORPUSCULAR HGB CONC 33.3 g/dl (32.0-36.5); MEAN CORPUSCULAR VOLUME 91.2 fl (80.0-96.0); MONO # 0.8 10^3/uL (0.0-0.8); MONO % 7.9 % (0.0-5.0); NEUTROPHILS # 8.1 10^3/uL (1.8-7.7); NEUTROPHILS % 76.8 % (36.0-66.0); PLATELET COUNT, AUTOMATED 224 10^3/uL (150-450); RED BLOOD COUNT 4.41 10^6/uL (4.30-6.10); WHITE BLOOD COUNT 10.5 10^3/uL (4.0-10.0)
[2018-10-25 08:27] LABS: C REACTIVE PROTEIN QUANTITATIV 8.47 MG/DL (0.00-0.30); CALCIUM LEVEL 8.4 MG/DL (8.8-10.2); CREATININE FOR GFR 1.24 MG/DL (0.70-1.30); POTASSIUM SERUM 3.9 MEQ/L (3.5-5.1)
[2018-10-25] MEDS: ENOXAPARIN 40 MG/0.4 ML SYRINGE (J1650) SC SCH (09:04)
[2018-10-25] MEDS: SENOKOT S TAB PO SCH ×2 (09:04→20:49)
[2018-10-25 14:00] VITALS: BP 131/63
--- NOTE | 2018-10-25 15:59 | IPNPDOC ---
Subjective General Date/Time Seen The patient was seen on 10/25/18 at 15:58. Subject Chief Complaint/History The patient is a 83-year-old male admitted with a reason for visit of Diverticulitis Of Intestine W/Perforation Abscess. Current Medications Current Medications Current Medications Acetaminophen (Tylenol Tab) 650 mg Q4HP PRN PO MILD PAIN or TEMP > 101; Start 10/23/18 at 19:30 Diatrizoate Meglum/ Diatrizoate Sod (Gastrografin) 10 ml Q30M PO Last admini stered on 10/23/18at 16:54; Start 10/23/18 at 16:20; Stop 10/23/18 at 16:51; Status DC Enoxaparin Sodium (Lovenox) 40 mg DAILY SC Last administered on 10/25/18 09:04; Start 10/24/18 at 09:00 Home Med (Med Rec Complete!) ASDIRECTED XX ; Start 10/23/18 at 19:30; Stop 10/23/18 at 19:35; Status DC Lactated Ringer's 1,000 ml @ 125 mls/hr Q8H IV Last administered on 10/25/18 03:32; Start 10/23/18 at 20:00 Morphine Sulfate (Morphine Sulfate Inj) 4 mg Q2HP PRN IV SEVERE PAIN (PS 8-10); Start 10/23/18 at 19:30 Ondansetron HCl (ZOFRAN INJection) 4 mg Q6HP PRN IV NAUSEA OR VOMITING; Start 10/23/18 at 19:30 Pantoprazole Sodium (Protonix) 40 mg QHS IV Last administered on 10/24/18at 22:47; Start 10/23/18 at 21:00 Piperacillin Sod/ Tazobactam Sod 3.375 gm/Dextrose 50 ml @ 50 mls/hr Q6H IV Last administered on 10/25/18 11:54; Start 10/24/18 at 00:00 Senna/Docusate Sodium (Senokot S) 1 tab BID PO Last administered on 10/25/18 09:04; Start 10/23/18 at 21:00 Tamsulosin HCl (Flomax) 0.4 mg QHS PO Last administered on 10/24/18at 22:47; Start 10/23/18 at 21:00 Allergies Coded Allergies: codeine (Verified Adverse Reaction, Unknown, 10/23/18) abd cramping Objective Physical Examination Examination GENERAL APPEARANCE:[Patient seen, laying in bed, awake, alert, and oriented. Comfortable, in no acute distress]. SKIN: [Warm and moist]. HEENT: [Normocephalic, atraumatic. [place] palpebral conjunctiva, anicteric sclerae. Lips and mucosa appear moist]. NECK: [Supple, no thyromegaly. No obvious jugular venous distention]. LUNGS: [Clear to auscultation bilaterally. No wheezing appreciated]. HEART: [No chest wall abnormalities. Regular rate and rhythm with no murmurs appreciated]. ABDOMEN: Abdomen is , soft, . [No hepatosplenomegaly. No umbilical or groin herniations, nondistended. No noticeable rebound or guarding. No grimacing with palpation. No rebound tenderness. No masses appreciated]. EXTREMITIES: [Extremities have no deformities. No edema identified]. Vital Signs Vital Signs Date Time Temp Pulse Resp B/P (MAP) Pulse Ox O2 Delivery O2 Flow Rate FiO2 10/25/18 14:00 97.1 71 18 131/63 (85) 96 10/23/18 20:25 Room Air I&Os I&O- Last 24 Hours up to 6 AM 10/25/18 05:59 Intake Total 3710 ml Output Total 2025 ml Balance 1685 ml Laboratory Data Labs 24H Laboratory Tests 2 10/25/18 07:44: Immature Granulocyte % (Auto) 0.6, White Blood Count 10.5H, Red Blood Count 4.41, Hemoglobin 13.4L, Hematocrit 40.2L, Mean Corpuscular Volume 91.2, Mean Corpuscular Hemoglobin 30.4, Mean Corpuscular Hemoglobin Concent 33.3, Red Cell Distribution Width 12.6, Platelet Count 224, Neutrophils (%) (Auto) 76.8H, Lymphocytes (%) (Auto) 12.7L, Monocytes (%) (Auto) 7.9H, Eosinophils (%) (Auto) 1.7, Basophils (%) (Auto) 0.3, Neutrophils # (Auto) 8.1H, Lymphocytes # (Auto) 1.3L, Monocytes # (Auto) 0.8, Eosinophils # (Auto) 0.2, Basophils # (Auto) 0.0, Nucleated Red Blood Cells % (auto) 0.0, Anion Gap 7L, Glomerular Filtration Rate 59.0, Blood Urea Nitrogen 14, Creatinine 1.24, Sodium Level 141, Potassium Level 3.9, Chloride Level 107, Carbon Dioxide Level 27, Calcium Level 8.4L, C-Reactive Protein, Quantitative 8.47H CBC/BMP Laboratory Tests 10/25/18 07:44 Red Blood Count 4.41, Mean Corpuscular Volume 91.2, Mean Corpuscular Hemoglobin 30.4, Mean Corpuscular Hemoglobin Concent 33.3, Red Cell Distribution Width 12.6, Neutrophils (%) (Auto) 76.8 H, Lymphocytes (%) (Auto) 12.7 L, Monocytes (%) (Auto) 7.9 H, Eosinophils (%) (Auto) 1.7, Basophils (%) (Auto) 0.3, Neutrophils # (Auto) 8.1 H, Lymphocytes # (Auto) 1.3 L, Monocytes # (Auto) 0.8, Eosinophils # (Auto) 0.2, Basophils # (Auto) 0.0, Calcium Level 8.4 L Impression acute diverticulitis with perforation and abscess ?small bowel diverticulitis doing better. keep on clears until repeat ct abdomen and pelvis tomorrow to look for drainable fluid collection, reasess area of inflammation. ADA KHOURY MD Oct 25, 2018 15:59
[2018-10-25] MEDS: PANTOPRAZOLE 40MG INJ (PROTONIX) (C9113) IV SCH (20:49)
[2018-10-25] MEDS: TAMSULOSIN 0.4 MG CAP PO SCH (20:49)
[2018-10-25 22:00] VITALS: BP 154/79
[2018-10-26] MEDS: LR 1,000 ML IV SCH ×2 (04:00→04:19)
[2018-10-26 06:00] VITALS: BP 156/82
[2018-10-26] MEDS: PIPERACILLIN/TAZOBACTAM SOD 3.375 GM in D5W MINI-BAG PLUS 50 ML IV SCH ×3 (06:10→17:40)
[2018-10-26] MEDS ORDERED: ISOVUE-370 76% 100ML VIAL (Q9967) As Ordered ONE (07:47)
--- NOTE | 2018-10-26 08:17 | REP ---
CT of the abdomen pelvis with IV contrast, without bowel contrast: Comparison is 10/23/2018. The known abdominal asset abscess in the left mid abdomen has decreased in size today measuring 2.1 cm maximal diameter. On the prior study, upon review eight measured 2.8 cm maximal diameter. The there is phlegmon in the mesentery adjacent to the abscess as previously. There is no pneumoperitoneum. There is no ascites. The visualized lung moran are unremarkable. The hepatic parenchyma is unremarkable. There are surgical clips in the gallbladder fossa. The pancreas, spleen, adrenals, kidneys and abdominal aorta are. There is no bowel distension or obstruction. Pelvis: There is an appendicolith at the appendix tip. The appendix is otherwise unremarkable. There is no appendix inflammation. The bladder is unremarkable. There is diverticulosis of the descending colon and sigmoid colon. The Impression: The known mesenteric abscess in the mid abdomen on the left has decreased in size. The phlegmon adjacent to the abscess is unchanged. There is no pneumoperitoneum or ascites. No other interval change. Electronically Signed by Adrian Hudson MD 10/26/2018 08:09 A
[2018-10-26] MEDS: ENOXAPARIN 40 MG/0.4 ML SYRINGE (J1650) SC SCH (08:49)
[2018-10-26] MEDS: SENOKOT S TAB PO SCH ×2 (08:49→21:00)
[2018-10-26 14:00] VITALS: BP 140/68
[2018-10-26 15:25] LABS: CLOSTRIDIUM DIFFICILE PCR NEGATIVE (NEGATIVE)
[2018-10-26] MEDS: TAMSULOSIN 0.4 MG CAP PO SCH (21:58)
[2018-10-26] MEDS: PANTOPRAZOLE 40MG INJ (PROTONIX) (C9113) IV SCH (21:58)
[2018-10-26 22:00] VITALS: BP 137/68
[2018-10-27] MEDS: PIPERACILLIN/TAZOBACTAM SOD 3.375 GM in D5W MINI-BAG PLUS 50 ML IV SCH ×2 (00:04→05:26)
[2018-10-27 06:00] VITALS: BP 158/78
[2018-10-27] MEDS: SENOKOT S TAB PO SCH (07:50)
[2018-10-27] MEDS: ENOXAPARIN 40 MG/0.4 ML SYRINGE (J1650) SC SCH (07:50)
[2018-10-27 08:59] LABS: BASO % 0.7 % (0.0-1.0); EOS # 0.2 10^3/uL (0.0-0.50); EOS % 4.1 % (0.0-3.0); HEMATOCRIT 39.3 % (42.0-52.0); HEMOGLOBIN 13.1 g/dl (13.5-17.5); LYMPH # 1.5 10^3/uL (1.5-4.5); LYMPH % 24.6 % (24.0-44.0); MEAN CORPUSCULAR HEMOGLOBIN 31.2 pg (27.0-33.0); MEAN CORPUSCULAR HGB CONC 33.3 g/dl (32.0-36.5); MEAN CORPUSCULAR VOLUME 93.6 fl (80.0-96.0); MONO # 0.4 10^3/uL (0.0-0.8); MONO % 6.8 % (0.0-5.0); NEUTROPHILS # 3.7 10^3/uL (1.8-7.7); PLATELET COUNT, AUTOMATED 268 10^3/uL (150-450); WHITE BLOOD COUNT 5.9 10^3/uL (4.0-10.0)
[2018-10-27 09:13] LABS: BLOOD UREA NITROGEN 11 MG/DL (7-18); C REACTIVE PROTEIN QUANTITATIV 3.35 MG/DL (0.00-0.30); CALCIUM LEVEL 8.7 MG/DL (8.8-10.2); CARBON DIOXIDE LEVEL 29 MEQ/L (21-32); CHLORIDE LEVEL 109 MEQ/L (98-107); CREATININE FOR GFR 1.19 MG/DL (0.70-1.30); GLOMERULAR FILTRATION RATE > 60.0 (>35); GLUCOSE, FASTING 129 MG/DL (70-100); POTASSIUM SERUM 3.7 MEQ/L (3.5-5.1); SODIUM LEVEL 141 MEQ/L (136-145)
[2018-10-27] MEDS ORDERED: CIPR5SUS PO (10:54)
[2018-10-27] MEDS ORDERED: METR-265 PO (10:54)
--- NOTE | 2018-10-27 11:01 | DS.PDOC ---
Discharge Summary General Date of Admission Oct 23, 2018 at 19:25 Date of Discharge 10/27/2018 Attending Physician: ADA KHOURY MD Discharge Summary PROCEDURES PERFORMED DURING STAY: None. ADMITTING DIAGNOSES: 1. Acute diverticulitis with contained perforation and abscess. 2. Ileus DISCHARGE DIAGNOSES: 1. Acute diverticulitis with contained perforation and abscess. 2. Ileus resolved COMPLICATIONS/CHIEF COMPLAINT: Diverticulitis Of Intestine W/Perforation Abscess. HISTORY OF PRESENT ILLNESS:. HOSPITAL COURSE: Patient was admitted to the hospital initially made nothing by mouth. He was started on Zosyn 3.375 g IV every 6 hours. Overnight he started having loose bowel movements which helped him with the abdominal distention and reports decreasing abdominal discomfort. With the resolution of discomfort he was started on clear liquids and subsequently slowly advanced to soft solid foods which she continues to tolerate. He did hav a good amount of loose bowel movements the day prior to his discharge he was checked for possibility of C. difficile colitis and this was negative. This slowed down overnight up until day of discharge. He still is having some mild loose stool but not as much. His abdominal pain has fully resolved and he is able to tolerate solid foods. DISCHARGE MEDICATIONS: Please see below. ALLERGIES: Please see below. PHYSICAL EXAMINATION ON DISCHARGE: VITAL SIGNS: Please see below. GENERAL: HEENT: NECK: CARDIOVASCULAR EXAMINATION: RESPIRATORY EXAMINATION: ABDOMINAL EXAMINATION: Soft, moderately rounded, minimally distended. Very minimal leftover tenderness over the left upper quadrant only and deep palpation without any guarding EXTREMITIES: SKIN: NEUROLOGICAL EXAMINATION: PSYCHIATRIC EXAMINATION: LABORATORY DATA: Please see below. IMAGING: CT scan abdomen and pelvis 2 PROGNOSIS: Good ACTIVITY: [As tolerated]. DIET: Soft diet until reevaluated in 2 weeks DISCHARGE PLAN: Patient will be discharged home on ciprofloxacin and metronidazole. He was instructed to complete a 2 week course of antibiotics. Follow up in clinic. He may or may not need repeat imaging depending on his symptomatology. DISPOSITION: . DISCHARGE INSTRUCTIONS: 1. Take ciprofloxacin and metronidazole as instructed for 2 weeks 2. Soft diet. ITEMS TO FOLLOWUP ON ON OUTPATIENT: 1. Symptom check. DISCHARGE CONDITION: [Stable]. TIME SPENT ON DISCHARGE: Greater than 30 minutes. Vital Signs/I&Os Vital Signs Date Time Temp Pulse Resp B/P (MAP) Pulse Ox O2 Delivery O2 Flow Rate FiO2 10/27/18 06:00 96.9 63 16 158/78 (104) 97 10/23/18 20:25 Room Air I&O- Last 24 Hours up to 6 AM 10/27/18 05:59 Intake Total 2220 ml Output Total 925 ml Balance 1295 ml Laboratory Data Labs 24H Laboratory Tests 2 10/26/18 14:22: Clostridium difficile [id number] PRESUMPTIVE NEGATIVE, Clostridium difficile Toxin (PCR) NEGATIVE 10/27/18 08:19: Immature Granulocyte % (Auto) 0.8, White Blood Count 5.9, Red Blood Count 4.20L, Hemoglobin 13.1L, Hematocrit 39.3L, Mean Corpuscular Volume 93.6, Mean Corpuscular Hemoglobin 31.2, Mean Corpuscular Hemoglobin Concent 33.3, Red Cell Distribution Width 12.6, Platelet Count 268, Neutrophils (%) (Auto) 63.0, Lymphocytes (%) (Auto) 24.6, Monocytes (%) (Auto) 6.8H, Eosinophils (%) (Auto) 4.1H, Basophils (%) (Auto) 0.7, Neutrophils # (Auto) 3.7, Lymphocytes # (Auto) 1.5, Monocytes # (Auto) 0.4, Eosinophils # (Auto) 0.2, Basophils # (Auto) 0.0, Nucleated Red Blood Cells % (auto) 0.0, Anion Gap 3L, Glomerular Filtration Rate > 60.0, Blood Urea Nitrogen 11, Creatinine 1.19, Sodium Level 141, Potassium Level 3.7, Chloride Level 109H, Carbon Dioxide Level 29, Calcium Level 8.7L, C- Reactive Protein, Quantitative 3.35H CBC/BMP Laboratory Tests 10/27/18 08:19 Red Blood Count 4.20 L, Mean Corpuscular Volume 93.6, Mean Corpuscular Hemoglobin 31.2, Mean Corpuscular Hemoglobin Concent 33.3, Red Cell Distribution Width 12.6, Neutrophils (%) (Auto) 63.0, Lymphocytes (%) (Auto) 24.6, Monocytes (%) (Auto) 6.8 H, Eosinophils (%) (Auto) 4.1 H, Basophils (%) (Auto) 0.7, Neutrophils # (Auto) 3.7, Lymphocytes # (Auto) 1.5, Monocytes # (Auto) 0.4, Eosinophils # (Auto) 0.2, Basophils # (Auto) 0.0, Calcium Level 8.7 L Discharge Medications Scheduled Ascorbic Acid (Vitamin C) 250 Mg Tab, 250 PO QHS, (Reported) Aspirin (Aspirin) 81 Mg Tab.chew, 81 MG PO QHS, (Reported) Ciprofloxacin (Ciprofloxacin) 500 Mg/5 Ml Mi.mc.rec, 500 MG PO BID Metronidazole (Metronidazole) 500 Mg Tablet, 500 MG PO TID Multivitamin with Minerals (Multivitamins with Minerals) 1 Each Tablet, 1 TAB PO QHS, (Reported) Nitroglycerin (Nitroglycerin) 0.4 Mg Tab.subl, 0.4 MG SL NITRO, (Reported) Omeprazole (Omeprazole) 20 Mg Capsule.dr, 20 MG PO QHS, (Reported) Tamsulosin HCl (Flomax) 0.4 Mg Cap, 0.4 MG PO QHS, (Reported) Vitamin D (Vitamin D3) 1,000 Unit Tablet, 1,000 UNITS PO QHS, (Reported) Vitamin E (Vitamin E) 400 Unit Capsule, 400 UNIT PO QHS, (Reported) Allergies Coded Allergies: codeine (Verified Adverse Reaction, Unknown, 10/23/18) ADA Dhillon MD Oct 27, 2018 11:01
== END 2018-10-27 12:23 | disposition home or self-care (01) | DRG 392 ==
LOC: M ED 14:37 → M ED INP 19:25 → M MSPAV 22:50
PROVIDERS: ADMIT Surgery; ATTEND Surgery
DX: K57.00 Diverticulitis of small intestine with perforation and abscess without bleeding (principal); K56.7 Ileus, unspecified; Z95.0 Presence of cardiac pacemaker; Z79.899 Other long term (current) drug therapy; Z88.5 Allergy status to narcotic agent; Z79.82 Long term (current) use of aspirin

== ENCOUNTER → 2018-11-13 | Outpatient (CLI) | payer MEDICARE ==
[~2018-11-13] MED LIST changes: +ASPI81CH33 PO; +CHOL100029 PO; +CIPR5SUS PO; +GASTROGRAFIN SOLUTION 30ML (Q9963) As Ordered ONE; +ISOVUE-370 76% 100ML VIAL (Q9967) As Ordered ONE; +METR-265 PO; +MULTTAB62 PO; +NITR0.4S14 SL; +OMEP-218 PO; -OMEP40CA2 PO; +OMEP40CA97 PO; +PEG1POW PO; +VITA400C56 PO
--- NOTE | 2018-11-14 09:59 | REP ---
CT ABDOMEN AND PELVIS WITH IV AND ORAL CONTRAST: 11/13/2018. Comparison: 10/26/2018, 10/23/2018. Clinical history: Follow-up diverticulitis small intestine with perforation, abscess. Technique: Oral Gastrografin mixture two doses per our bowel contrast protocol and bolus of 100 ml Isovue 370, scanning through the abdomen and pelvis with coronal and sagittal reconstructions provided. Findings: CT abdomen: The lung bases without infiltrate, effusion or other acute finding. Heart size unchanged. No pericardial thickening or effusion. No hiatal hernia. Oral contrast filled stomach. The liver and spleen are unchanged from the prior studies. Gallbladder absent and the common duct and pancreas are unchanged without acute finding. Gas and stool scattered in the abdominal portion of the colon with the left colon showing scattered diverticulosis without diverticulitis. Zone of inflammatory change adjacent to small bowel loops in the left upper quadrant shows interval clearing of the infiltration of fat. I do not see abscess. I suspect a small bowel diverticulum in this region. There are a few scattered nodes adjacent up to 9.9 mm on image 59 of series 201, obscured by the inflammatory change or increased in size due to that recent infection. However the remainder of the retroperitoneal periaortic nodes are of normal size. Small bowel loops without dilatation. Lung window review of all CT slices shows no perforation or free air. Atherosclerotic calcifications of the aorta without aneurysm or dissection. The kidneys symmetric in enhancement without mass, cyst or hydronephrosis. No visible stone. Bones unchanged. CT pelvis. No ureteral dilatation or stone. Bladder without mass, wall thickening or stone. Anastomotic sutures at the distal left colon and rectum at the rectosigmoid junction. Unchanged. No ascites in the abdomen or pelvis. No free air. No pericecal inflammatory change to suggest appendicitis. The appendix seen and normal. Impression: 1. Clearing of the mesenteric edema and infiltration of fat in the region of interloop abscess of small bowel in the left upper quadrant since the previous two studies. There are some small nodes present there although the largest is 9.9 mm. There is no residual fluid, edema or other significant finding. Electronically Signed by Nolberto Gonzalez MD 11/14/2018 10:14 A
== END ==
LOC: M RAD 15:18
PROVIDERS: ATTEND Nurse Practitioner
DX: K57.00 Diverticulitis of small intestine with perforation and abscess without bleeding (principal)
CPT/HCPCS: 74177; Q9963; Q9967

== ENCOUNTER → 2019-01-11 | Outpatient (REF) | payer MEDICARE ==
[~2019-01-11] MED LIST changes: -GASTROGRAFIN SOLUTION 30ML (Q9963) As Ordered ONE; -ISOVUE-370 76% 100ML VIAL (Q9967) As Ordered ONE
[2019-01-11 18:54] LABS: APPEARANCE, URINE HAZY (CLEAR); BACTERIA, URINE AUTO NEGATIVE (NEGATIVE); BILIRUBIN, URINE AUTO NEGATIVE (NEGATIVE); BLOOD, URINE BLOOD NEGATIVE (NEGATIVE); COLOR, URINE YELLOW (YELLOW); GLUCOSE, URINE (UA) AUTO NEGATIVE (NEGATIVE); KETONE, URINE AUTO NEGATIVE (NEGATIVE); LEUKOCYTE ESTERASE, URINE AUTO NEGATIVE (NEGATIVE); NITRITE, URINE AUTO NEGATIVE (NEGATIVE); PROTEIN, URINE AUTO NEGATIVE (NEGATIVE); RBC, URINE AUTO 1 /HPF (0-3); SPECIFIC GRAVITY URINE AUTO 1.019 (1.002-1.035); SQUAMOUS EPITHELIAL CELL UR AU 0 /HPF (0-6); UROBILINOGEN, URINE AUTO 0.2 mg/dL (0.0-2.0); WBC, URINE AUTO 0 /HPF (0-3)
== END ==
LOC: M SMT 17:15
PROVIDERS: ATTEND Nurse Practitioner Family
DX: R30.0 Dysuria (principal)
CPT/HCPCS: 51798; 81001; 87086; G0463

== ENCOUNTER → 2020-02-01 | Outpatient (CLI) | payer MEDICARE ==
[~2020-02-01] MED LIST changes: -ASPI81TA85 PO; +ASPI81TA86 PO; -VITA1TAB23 PO; +VITA250T20 PO
[2020-02-01 10:08] LABS: BLOOD UREA NITROGEN 16 MG/DL (7-18); CALCIUM LEVEL 9.3 MG/DL (8.8-10.2); CARBON DIOXIDE LEVEL 29 MEQ/L (21-32); CHLORIDE LEVEL 107 MEQ/L (98-107); CREATININE FOR GFR 1.14 MG/DL (0.70-1.30); GLOMERULAR FILTRATION RATE > 60.0 (>35); GLUCOSE, FASTING 105 MG/DL (70-100); POTASSIUM SERUM 4.6 MEQ/L (3.5-5.1); SODIUM LEVEL 140 MEQ/L (136-145)
== END ==
LOC: M LAB 09:01
PROVIDERS: ATTEND Physician Assistant
DX: R60.0 Localized edema (principal)

== ENCOUNTER → 2020-06-19 | Outpatient (CLI) | payer MEDICARE ==
[~2020-06-19] MED LIST changes: -PEG1POW PO; +POLY17PO18 PO
--- NOTE | 2020-06-19 17:15 | REP ---
INDICATION: PAIN IN RIGHT WRIST COMPARISON: None. TECHNIQUE: There are four views. FINDINGS: Mineralization and joint spaces are unremarkable. There is no fracture or dislocation. There is calcified vascular atheroma. Otherwise there are no calcifications or foreign bodies. IMPRESSION: Essentially negative right wrist. <Electronically signed by Adrian Hudson > 06/19/20 [id number]
== END ==
LOC: M ADAMS 14:02
PROVIDERS: ATTEND Nurse Practitioner Family
DX: M25.531 Pain in right wrist (principal)

== ENCOUNTER → 2020-07-17 | Outpatient (CLI) | payer MEDICARE ==
--- NOTE | 2020-07-18 09:06 | REP ---
INDICATION: PAIN IN RIGHT WRIST. COMPARISON: None TECHNIQUE: Noncontrast enhanced helical technique FINDINGS: A few calcifications are seen in the ventral soft tissues consistent with vascular calcifications. In addition, stippled calcifications are seen in the soft tissues just ventral to the region of the triangular fibrocartilage complex. There is narrowing of the interval between the scaphoid, trapezium, and trapezoid. In addition, there is narrowing of the 1st carpometacarpal joint space seen in conjunction with marginal osteophytosis. There is mild to moderate radiocarpal joint space narrowing without ildefonso subchondral sclerosis. There is no evidence of an acute fracture. The distal radioulnar joint is narrowed. IMPRESSION: Chronic changes as described above. If a triangular fibrocartilage complex tear or intercarpal ligamentous injury is of clinical concern then an MRI should be considered. <Electronically signed by Papito Figueroa > 07/18/20 [id number]
== END ==
LOC: M RAD 16:19
PROVIDERS: ATTEND Physician Assistant Surgical
DX: M25.531 Pain in right wrist (principal)

== ENCOUNTER → 2021-04-27 | Outpatient (CLI) | payer MEDICARE ==
[~2021-04-27] MED LIST changes: +OMEP-173 PO; -OMEP-218 PO; +OMEP40CA4 PO; -OMEP40CA97 PO
== END ==
LOC: M LABSMTC 10:00
PROVIDERS: ATTEND Anesthesiology
DX: Z01.812 Encounter for preprocedural laboratory examination (principal); Z20.822 Contact with and (suspected) exposure to COVID-19

== ENCOUNTER 2021-05-01 11:10 | Day surgery (SDC) | payer MEDICARE ==
[~2021-05-01] VITALS: Ht 170.2 cm; Wt 73.0 kg
[~2021-05-01 11:10] MED LIST changes: +ASCO100013 PO; +D 1010004 PO; +FURO20TA2 PO; +LR 1,000 ML IV ONE; +ceFAZolin SOD 2 GM in IV 1 EA IV ONE
[2021-05-01] MEDS ORDERED: propofoL 200 MG/20 ML VIAL As Ordered ONE (13:04)
[2021-05-01] MEDS ORDERED: fentaNYL 100 MCG/2 ML INJECTION (J3010) As Ordered ONE (13:04)
[2021-05-01] MEDS ORDERED: ACETAMINOPHEN 1000MG 100ML IV BTL (OFIRMEV) (J0131 PER 10MG) As Ordered ONE (13:12)
[2021-05-01] MEDS ORDERED: LIDOCAINE 1% SDV 30ML VIAL As Ordered ONE (13:56)
[2021-05-01] MEDS ORDERED: AMIODARONE 150MG/3ML INJ (J0282) As Ordered ONE (13:57)
[2021-05-01] MEDS ORDERED: ISOVUE-300 61% 50ML VIAL As Ordered ONE (13:57)
[2021-05-01] MEDS ORDERED: GENTAMICIN SULF 80MG/2ML VIAL As Ordered ONE (13:58)
[2021-05-01] MEDS ORDERED: LIDOCAINE 2% 100MG/5ML SDV (FOR ANES.) As Ordered ONE (14:49)
[2021-05-01] MEDS ORDERED: ceFAZolin 1GM VIAL (J0690 PER 500MG) As Ordered ONE (14:50)
[2021-05-01 15:55] VITALS: BP 141/64
== END 2021-05-01 16:28 | disposition home or self-care (01) ==
LOC: M SDC 11:10
PROVIDERS: ATTEND Internal Medicine Cardiovascular Disease
DX: Z45.010 Encounter for checking and testing of cardiac pacemaker pulse generator [battery] (principal); I49.5 Sick sinus syndrome; I45.10 Unspecified right bundle-branch block; R94.31 Abnormal electrocardiogram [ECG] [EKG]; R55 Syncope and collapse; N40.0 Benign prostatic hyperplasia without lower urinary tract symptoms; K21.9 Gastro-esophageal reflux disease without esophagitis; R13.10 Dysphagia, unspecified; R60.0 Localized edema; Z90.49 Acquired absence of other specified parts of digestive tract; Z98.1 Arthrodesis status; Z88.5 Allergy status to narcotic agent; Z88.8 Allergy status to other drugs, medicaments and biological substances; Z87.19 Personal history of other diseases of the digestive system; Z79.899 Other long term (current) drug therapy; Z79.82 Long term (current) use of aspirin
CPT/HCPCS: 33228; C1785; J0131; J0282; J0690; J3010

== ENCOUNTER 2021-06-23 22:37 | Emergency (ER) | payer MEDICARE ==
[~2021-06-23] VITALS: Ht 170.2 cm; Wt 69.8 kg
[~2021-06-23 22:37] MED LIST changes: -LR 1,000 ML IV ONE; -ceFAZolin SOD 2 GM in IV 1 EA IV ONE
[2021-06-23] MEDS ORDERED: MORPHINE 4 MG/ML 1ML VIAL/SYRINGE (J2270) IV ONE (23:15)
[2021-06-23] MEDS ORDERED: ONDANSETRON 4MG/2ML VIAL IV ONE (23:15)
[2021-06-23 23:27] LABS: BASO # 0.1 10^3/uL (0.0-0.2); BASO % 0.4 % (0.0-1.0); EOS # 0.2 10^3/uL (0.0-0.5); EOS % 1.5 % (0.0-3.0); HEMATOCRIT 43.2 % (42.0-52.0); HEMOGLOBIN 14.2 g/dl (13.5-17.5); LYMPH # 2.1 10^3/uL (1.5-5.0); LYMPH % 15.9 % (24.0-44.0); MEAN CORPUSCULAR HEMOGLOBIN 29.5 pg (27.0-33.0); MEAN CORPUSCULAR HGB CONC 32.9 g/dl (32.0-36.5); MEAN CORPUSCULAR VOLUME 89.6 fl (80.0-96.0); MONO # 0.8 10^3/uL (0.0-0.8); MONO % 5.9 % (2.0-8.0); NEUTROPHILS # 9.9 10^3/uL (1.5-8.5); NEUTROPHILS % 75.8 % (36.0-66.0); PLATELET COUNT, AUTOMATED 279 10^3/uL (150-450); RED BLOOD COUNT 4.82 10^6/uL (4.30-6.10)
[2021-06-23 23:40] LABS: ALBUMIN 3.5 GM/DL (3.2-5.2); ALT/SGPT 27 U/L (12-78); BILIRUBIN,TOTAL 0.4 MG/DL (0.2-1.0); BLOOD UREA NITROGEN 18 MG/DL (7-18); CALCIUM LEVEL 9.3 MG/DL (8.8-10.2); CARBON DIOXIDE LEVEL 28 MEQ/L (21-32); CHLORIDE LEVEL 106 MEQ/L (98-107); CREATININE FOR GFR 1.07 MG/DL (0.70-1.30); GLOMERULAR FILTRATION RATE > 60.0 (>35); GLUCOSE, FASTING 154 MG/DL (70-100); LIPASE 75 U/L (73-393); POTASSIUM SERUM 4.1 MEQ/L (3.5-5.1); SODIUM LEVEL 138 MEQ/L (136-145); TOTAL PROTEIN 6.3 GM/DL (6.4-8.2)
[2021-06-23 23:41] LABS: CK-MB VALUE MASS 1.9 NG/ML (<3.6); MB/CK RELATIVE INDEX 2.04 (< OR =4)
[2021-06-24] MEDS ORDERED: GI COCKTAIL 50ML BTL(HYOSCYAMINE/MAALOX/LIDOCAINE VISCOUS)(1:3:1) PO ONE (00:20)
[2021-06-24 01:16] VITALS: BP 135/64
[2021-06-24] MEDS ORDERED: CARA1TAB6 PO (01:24)
[2021-06-24] MEDS ORDERED: SUCRALFATE 1 GM TAB PO ONE (01:30)
== END 2021-06-24 01:35 | disposition home or self-care (01) ==
LOC: M ED 22:37
DX: K27.9 Peptic ulcer, site unspecified, unspecified as acute or chronic, without hemorrhage or perforation (principal); R93.5 Abnormal findings on diagnostic imaging of other abdominal regions, including retroperitoneum; I25.10 Atherosclerotic heart disease of native coronary artery without angina pectoris; N40.0 Benign prostatic hyperplasia without lower urinary tract symptoms; Z87.440 Personal history of urinary (tract) infections; Z95.0 Presence of cardiac pacemaker; Z90.49 Acquired absence of other specified parts of digestive tract; K57.92 Diverticulitis of intestine, part unspecified, without perforation or abscess without bleeding
CPT/HCPCS: 74176; 80053; 82550; 82553; 83605; 83690; 84484; 85025; 93005; 96374; 96375; 99285; J2270; J2405

== ENCOUNTER → 2021-10-03 | Outpatient (REF) | payer MEDICARE ==
[~2021-10-03] MED LIST changes: +CARA1TAB6 PO
== END ==
LOC: M SFHCADAM 08:38
PROVIDERS: ATTEND Physician Assistant
DX: R97.20 Elevated prostate specific antigen [PSA] (principal)

== ENCOUNTER → 2021-10-16 | Outpatient (REF) | payer MEDICARE | LOC: M SMT 12:53 | PROVIDERS: ATTEND Urology | DX: C61 Malignant neoplasm of prostate (principal) ==

== ENCOUNTER → 2021-10-18 | Outpatient (REF) | payer MEDICARE | LOC: M SMT 16:44 | PROVIDERS: ATTEND Urology | DX: N39.0 Urinary tract infection, site not specified (principal) ==

== ENCOUNTER → 2021-10-29 | Outpatient (CLI) | payer MEDICARE ==
[2021-10-29 13:52] LABS: CALCIUM LEVEL 9.9 MG/DL (8.8-10.2); CREATININE FOR GFR 1.47 MG/DL (0.70-1.30); GLOMERULAR FILTRATION RATE 48.1 (>35); POTASSIUM SERUM 5.2 MEQ/L (3.5-5.1)
== END ==
LOC: M ADAMS 08:22
PROVIDERS: ATTEND Urology
DX: C61 Malignant neoplasm of prostate (principal)

== ENCOUNTER → 2021-12-05 | Outpatient (CLI) | payer MEDICARE | LOC: M ONCR 14:09 | PROVIDERS: ATTEND General Practice | DX: C61 Malignant neoplasm of prostate (principal); K21.9 Gastro-esophageal reflux disease without esophagitis; I25.10 Atherosclerotic heart disease of native coronary artery without angina pectoris; N40.0 Benign prostatic hyperplasia without lower urinary tract symptoms; Z79.818 Long term (current) use of other agents affecting estrogen receptors and estrogen levels; Z79.82 Long term (current) use of aspirin; Z79.899 Other long term (current) drug therapy; Z87.442 Personal history of urinary calculi; Z95.0 Presence of cardiac pacemaker ==

== ENCOUNTER → 2022-01-04 | Outpatient (RCR) | payer MEDICARE ==
[~2022-01-04] MED LIST changes: +VENL75TA2 PO
== END ==
LOC: M ONCR 12-13 07:15
PROVIDERS: ATTEND General Practice
DX: C61 Malignant neoplasm of prostate (principal)

== ENCOUNTER 2022-01-19 14:24 | Emergency (ER) | payer MEDICARE ==
[2022-01-19 14:24] VITALS: BP 160/70
[2022-01-19] MEDS ORDERED: METAL LOCK LOOP XX ONE (15:52)
[2022-01-21] MEDS ORDERED: MYRB50TA PO (08:46)
== END 2022-01-19 15:55 | disposition home or self-care (01) ==
LOC: M ED 14:24
DX: M79.89 Other specified soft tissue disorders (principal); M79.605 Pain in left leg; E11.9 Type 2 diabetes mellitus without complications; I10 Essential (primary) hypertension; K21.9 Gastro-esophageal reflux disease without esophagitis; R60.0 Localized edema; R55 Syncope and collapse; C61 Malignant neoplasm of prostate; N40.0 Benign prostatic hyperplasia without lower urinary tract symptoms; Z95.0 Presence of cardiac pacemaker; Z88.5 Allergy status to narcotic agent; Z79.899 Other long term (current) drug therapy

== ENCOUNTER 2022-02-04 08:14 | Outpatient (RCR) | payer MEDICARE ==
[~2022-02-04 08:14] MED LIST changes: +MYRB50TA PO; +OXYB10TA23 PO
== END 2022-02-04 23:59 | disposition home or self-care (01) ==
LOC: M ONCR 08:14
PROVIDERS: ATTEND General Practice
DX: C61 Malignant neoplasm of prostate (principal)

== ENCOUNTER 2022-02-07 08:16 | Outpatient (RCR) | payer MEDICARE | END 2022-03-06 | LOC: M ONCR 08:16 | PROVIDERS: ATTEND General Practice | DX: C61 Malignant neoplasm of prostate (principal) ==

== ENCOUNTER → 2022-03-14 | Outpatient (REF) | payer MEDICARE ==
[2022-03-14 15:50] LABS: BASO % 0.8 % (0.0-1.0); EOS # 0.1 10^3/uL (0.0-0.5); EOS % 2.3 % (0.0-3.0); HEMATOCRIT 38.7 % (42.0-52.0); HEMOGLOBIN 12.4 g/dl (13.5-17.5); LYMPH # 0.6 10^3/uL (1.5-5.0); LYMPH % 10.9 % (24.0-44.0); MEAN CORPUSCULAR HEMOGLOBIN 30.7 pg (27.0-33.0); MEAN CORPUSCULAR VOLUME 95.8 fl (80.0-96.0); MONO # 0.6 10^3/uL (0.0-0.8); MONO % 10.7 % (2.0-8.0); NEUTROPHILS # 3.9 10^3/uL (1.5-8.5); NEUTROPHILS % 73.8 % (36.0-66.0); PLATELET COUNT, AUTOMATED 209 10^3/uL (150-450); RED BLOOD COUNT 4.04 10^6/uL (4.30-6.10); WHITE BLOOD COUNT 5.3 10^3/uL (4.0-10.0)
[2022-03-14 16:07] LABS: ALBUMIN 3.6 G/DL (3.2-5.2); ALKALINE PHOSPHATASE 64 U/L (46-116); ALT/SGPT 19 U/L (7.0-40); AST/SGOT 16 U/L (<34); BILIRUBIN,TOTAL 0.5 MG/DL (0.3-1.2); BLOOD UREA NITROGEN 24 MG/DL (9-23); CALCIUM LEVEL 9.5 MG/DL (8.3-10.6); CARBON DIOXIDE LEVEL 29 MMOL/L (20-31); CHLORIDE LEVEL 104 MMOL/L (98-107); CHOLESTEROL LEVEL 138 MG/DL (<200); CREATININE FOR GFR 0.99 MG/DL (0.70-1.30); GLOMERULAR FILTRATION RATE > 60.0 (>35); GLUCOSE, FASTING 109 MG/DL (74-106); HDL CHOLESTEROL 35.3 MG/DL (>40); LDL CHOLESTEROL 80.3 MG/DL (<100); NON-HDL-C 103 MG/DL; POTASSIUM SERUM 4.5 MMOL/L (3.5-5.1); SODIUM LEVEL 141 MMOL/L (136-145); TOTAL PROTEIN 6.3 G/DL (5.7-8.2); TRIGLYCERIDES LEVEL 112 MG/DL (<150)
[2022-03-14 17:34] LABS: HEMOGLOBIN A1c 5.8 % (4.0-6.0)
== END ==
LOC: M LABDRWAD 13:02
PROVIDERS: ATTEND Internal Medicine
DX: C61 Malignant neoplasm of prostate (principal); E11.9 Type 2 diabetes mellitus without complications; K21.9 Gastro-esophageal reflux disease without esophagitis

== ENCOUNTER → 2022-05-06 | Outpatient (REF) | payer MEDICARE | LOC: M LABDRWAD 13:08 | PROVIDERS: ATTEND General Practice | DX: C61 Malignant neoplasm of prostate (principal) ==

== ENCOUNTER → 2022-05-10 | Outpatient (CLI) | payer MEDICARE ==
[~2022-05-10] MED LIST changes: +DIPH2.5T15 PO; +OXYB15TA14 PO
== END ==
LOC: M ONCR 08:49
PROVIDERS: ATTEND General Practice
DX: C61 Malignant neoplasm of prostate (principal); R19.4 Change in bowel habit; R35.1 Nocturia; M25.551 Pain in right hip; M25.552 Pain in left hip; Z79.818 Long term (current) use of other agents affecting estrogen receptors and estrogen levels; Z79.899 Other long term (current) drug therapy; Z88.5 Allergy status to narcotic agent; Z92.3 Personal history of irradiation
CPT/HCPCS: 72170; G0463

== ENCOUNTER → 2022-05-10 | Outpatient (CLI) | payer MEDICARE | LOC: M ADAMS 11:14 | PROVIDERS: ATTEND General Practice | DX: M25.551 Pain in right hip (principal); M25.552 Pain in left hip; Z85.46 Personal history of malignant neoplasm of prostate ==

== ENCOUNTER → 2022-05-21 | Outpatient (REF) | payer MEDICARE | LOC: M SMT 16:49 | PROVIDERS: ATTEND Urology | DX: R30.0 Dysuria (principal) ==

== ENCOUNTER → 2022-05-22 | Outpatient (REF) | payer MEDICARE ==
[2022-05-22 14:55] LABS: HEMATOCRIT 37.5 % (42.0-52.0); HEMOGLOBIN 12.4 g/dl (13.5-17.5); MEAN CORPUSCULAR HEMOGLOBIN 31.2 pg (27.0-33.0); MEAN CORPUSCULAR HGB CONC 33.1 g/dl (32.0-36.5); MEAN CORPUSCULAR VOLUME 94.5 fl (80.0-96.0); PLATELET COUNT, AUTOMATED 214 10^3/uL (150-450); RED BLOOD COUNT 3.97 10^6/uL (4.30-6.10); WHITE BLOOD COUNT 5.5 10^3/uL (4.0-10.0)
[2022-05-22 15:24] LABS: BLOOD UREA NITROGEN 17 MG/DL (9-23); CALCIUM LEVEL 9.4 MG/DL (8.3-10.6); CARBON DIOXIDE LEVEL 27 MMOL/L (20-31); CHLORIDE LEVEL 106 MMOL/L (98-107); CREATININE FOR GFR 0.95 MG/DL (0.70-1.30); GLOMERULAR FILTRATION RATE > 60.0 (>35); GLUCOSE, FASTING 116 MG/DL (74-106); SODIUM LEVEL 140 MMOL/L (136-145)
== END ==
LOC: M LABDRWAD 14:38
PROVIDERS: ATTEND Internal Medicine
DX: R21 Rash and other nonspecific skin eruption (principal)

== ENCOUNTER → 2022-07-23 | Outpatient (CLI) | payer MEDICARE | LOC: M PLAIMG 12:00 | PROVIDERS: ATTEND Orthopaedic Surgery | DX: M54.59 Other low back pain (principal) ==

== ENCOUNTER → 2022-08-05 | Outpatient (CLI) | payer MEDICARE ==
[2022-08-05 16:18] LABS: PLATELET COUNT, AUTOMATED 215 10^3/uL (150-450)
[2022-08-05 16:28] LABS: INR 0.93; PROTHROMBIN TIME 12.7 SECONDS (12.5-14.5)
[2022-08-05 16:29] LABS: PARTIAL THROMBOPLASTIN TIME 25.7 SECONDS (24.8-34.2)
[2022-08-05 16:43] LABS: COLLAGEN EPINEPHRINE 106 SECONDS (74-162)
== END ==
LOC: M LABDRWAD 13:06
PROVIDERS: ATTEND Physician Assistant Surgical
DX: Z01.818 Encounter for other preprocedural examination (principal); Z79.01 Long term (current) use of anticoagulants

== ENCOUNTER → 2022-08-07 | Outpatient (CLI) | payer MEDICARE ==
[2022-08-07 10:31] LABS: PROSTATIC SPECIFIC AG MONITOR 0.04 NG/ML (< 4.00)
[2022-08-07 10:38] LABS: TESTOSTERONE < 7 NG/DL (241-827)
== END ==
LOC: M ONCR 08:46
PROVIDERS: ATTEND General Practice
DX: C61 Malignant neoplasm of prostate (principal); Z92.3 Personal history of irradiation; Z92.29 Personal history of other drug therapy; Z88.5 Allergy status to narcotic agent; Z79.899 Other long term (current) drug therapy; E29.1 Testicular hypofunction
CPT/HCPCS: 36415; 84153; 84403; G0463

== ENCOUNTER → 2022-08-23 | Outpatient (REF) | payer MEDICARE | LOC: M LAB REF 15:57 | PROVIDERS: ATTEND Internal Medicine | DX: K64.8 Other hemorrhoids (principal) ==

== ENCOUNTER → 2022-09-17 | Outpatient (REF) | payer MEDICARE ==
[2022-09-17 15:12] LABS: BASO # 0.1 10^3/uL (0.0-0.2); BASO % 0.9 % (0.0-1.0); EOS # 0.1 10^3/uL (0.0-0.5); EOS % 1.3 % (0.0-3.0); HEMATOCRIT 41.7 % (42.0-52.0); HEMOGLOBIN 13.3 g/dl (13.5-17.5); LYMPH # 0.9 10^3/uL (1.5-5.0); LYMPH % 12.6 % (24.0-44.0); MEAN CORPUSCULAR HEMOGLOBIN 30.2 pg (27.0-33.0); MEAN CORPUSCULAR HGB CONC 31.9 g/dl (32.0-36.5); MEAN CORPUSCULAR VOLUME 94.6 fl (80.0-96.0); MONO # 0.6 10^3/uL (0.0-0.8); MONO % 9.1 % (2.0-8.0); NEUTROPHILS # 5.1 10^3/uL (1.5-8.5); NEUTROPHILS % 74.9 % (36.0-66.0); PLATELET COUNT, AUTOMATED 230 10^3/uL (150-450); RED BLOOD COUNT 4.41 10^6/uL (4.30-6.10); WHITE BLOOD COUNT 6.9 10^3/uL (4.0-10.0)
[2022-09-17 15:47] LABS: ALBUMIN 3.8 G/DL (3.2-5.2); ALKALINE PHOSPHATASE 77 U/L (46-116); ALT/SGPT 29 U/L (7.0-40); AST/SGOT 21 U/L (<34); BILIRUBIN,TOTAL 0.6 MG/DL (0.3-1.2); BLOOD UREA NITROGEN 18 MG/DL (9-23); CALCIUM LEVEL 9.2 MG/DL (8.3-10.6); CARBON DIOXIDE LEVEL 29 MMOL/L (20-31); CHLORIDE LEVEL 107 MMOL/L (98-107); CREATININE FOR GFR 1.02 MG/DL (0.70-1.30); GLOMERULAR FILTRATION RATE > 60.0 (>35); GLUCOSE, FASTING 101 MG/DL (74-106); POTASSIUM SERUM 4.4 MMOL/L (3.5-5.1); SODIUM LEVEL 143 MMOL/L (136-145)
[2022-09-17 15:55] LABS: HEMOGLOBIN A1c 6.5 % (4.0-6.0)
== END ==
LOC: M LABDRWAD 12:53
PROVIDERS: ATTEND Internal Medicine
DX: E11.9 Type 2 diabetes mellitus without complications (principal); K21.9 Gastro-esophageal reflux disease without esophagitis; C61 Malignant neoplasm of prostate

== ENCOUNTER → 2022-10-10 | Outpatient (REF) | payer MEDICARE | LOC: M SFHCADAM 09:13 | PROVIDERS: ATTEND Urology | DX: C61 Malignant neoplasm of prostate (principal) ==

== ENCOUNTER 2022-12-12 14:15 | Inpatient (IN) | payer MEDICARE ==
[~2022-12-12] VITALS: Ht 170.2 cm; Wt 75.7 kg
[2022-12-12 15:35] LABS: BASO % 0.6 % (0.0-1.0); EOS # 0.1 10^3/uL (0.0-0.5); EOS % 2.3 % (0.0-3.0); HEMATOCRIT 38.9 % (42.0-52.0); HEMOGLOBIN 12.7 g/dl (13.5-17.5); LYMPH % 18.4 % (24.0-44.0); MEAN CORPUSCULAR HEMOGLOBIN 29.8 pg (27.0-33.0); MEAN CORPUSCULAR HGB CONC 32.6 g/dl (32.0-36.5); MEAN CORPUSCULAR VOLUME 91.3 fl (80.0-96.0); MONO # 0.7 10^3/uL (0.0-0.8); MONO % 12.6 % (2.0-8.0); NEUTROPHILS # 3.4 10^3/uL (1.5-8.5); NEUTROPHILS % 65.5 % (36.0-66.0); PLATELET COUNT, AUTOMATED 210 10^3/uL (150-450); RED BLOOD COUNT 4.26 10^6/uL (4.30-6.10); WHITE BLOOD COUNT 5.2 10^3/uL (4.0-10.0)
[2022-12-12 15:53] LABS: INR 1.1; PROTHROMBIN TIME 13.9 SECONDS (12.5-14.5)
[2022-12-12 16:06] LABS: ALBUMIN 3.7 G/DL (3.2-5.2); ALKALINE PHOSPHATASE 98 U/L (46-116); ALT/SGPT 24 U/L (7.0-40); AST/SGOT 19 U/L (<34); BILIRUBIN,TOTAL 0.3 MG/DL (0.3-1.2); BLOOD UREA NITROGEN 16 MG/DL (9-23); CALCIUM LEVEL 9.5 MG/DL (8.3-10.6); CARBON DIOXIDE LEVEL 28 MMOL/L (20-31); CHLORIDE LEVEL 107 MMOL/L (98-107); CREATININE FOR GFR 0.95 MG/DL (0.70-1.30); GLOMERULAR FILTRATION RATE > 60.0 (>35); GLUCOSE, FASTING 114 MG/DL (74-106); POTASSIUM SERUM 4.2 MMOL/L (3.5-5.1); SODIUM LEVEL 140 MMOL/L (136-145); TOTAL PROTEIN 6.3 G/DL (5.7-8.2)
[2022-12-12] MEDS ORDERED: ISOVUE-370 76% 100ML VIAL As Ordered ONE (16:20)
[2022-12-12] MEDS ORDERED: ASPIRIN 81MG CHEW TABLET PO ONE (18:15)
[2022-12-12] MEDS ORDERED: MED REC IN PROGRESS XX SCH (19:00)
[2022-12-12] MEDS ORDERED: FLOM0.4C39 PO (19:07)
[2022-12-12] MEDS ORDERED: HOME MED LIST COMPLETE! XX SCH (19:15)
[2022-12-12] MEDS ORDERED: OMEPRAZOLE 20MG CAP PO SCH (21:00)
[2022-12-12] MEDS ORDERED: ATORVASTATIN 20 MG TAB PO SCH (21:00)
[2022-12-12] MEDS ORDERED: TAMSULOSIN 0.4 MG CAP PO SCH (21:00)
[2022-12-12 21:50] VITALS: BP 158/74; TEMP 97; O2SAT 94; O2SAT 97
[2022-12-12 23:40] VITALS: BP 131/63; TEMP 97; O2SAT 96
[2022-12-12 23:40] LABS: CHOLESTEROL LEVEL 135 MG/DL (<200); TRIGLYCERIDES LEVEL 179 MG/DL (<150)
[2022-12-13] VITALS: BP 131/63; TEMP 97; O2SAT 96
[2022-12-13 03:34] LABS: CHOLESTEROL RISK RATIO 4.73 (<5); HDL CHOLESTEROL 28.5 MG/DL (>40); LDL CHOLESTEROL 70.7 MG/DL (<100); NON-HDL-C 106.5 MG/DL
[2022-12-13 04:00] VITALS: O2SAT 91
[2022-12-13 04:29] VITALS: BP 133/60; TEMP 97.1; O2SAT 93
[2022-12-13 07:02] LABS: BASO % 0.5 % (0.0-1.0); EOS # 0.1 10^3/uL (0.0-0.5); EOS % 2.6 % (0.0-3.0); HEMATOCRIT 37.3 % (42.0-52.0); HEMOGLOBIN 12.4 g/dl (13.5-17.5); LYMPH # 0.9 10^3/uL (1.5-5.0); LYMPH % 16.8 % (24.0-44.0); MEAN CORPUSCULAR HEMOGLOBIN 30.2 pg (27.0-33.0); MEAN CORPUSCULAR HGB CONC 33.2 g/dl (32.0-36.5); MEAN CORPUSCULAR VOLUME 90.8 fl (80.0-96.0); MONO # 0.6 10^3/uL (0.0-0.8); MONO % 10.2 % (2.0-8.0); NEUTROPHILS # 3.8 10^3/uL (1.5-8.5); NEUTROPHILS % 69.4 % (36.0-66.0); PLATELET COUNT, AUTOMATED 197 10^3/uL (150-450); RED BLOOD COUNT 4.11 10^6/uL (4.30-6.10); WHITE BLOOD COUNT 5.5 10^3/uL (4.0-10.0)
[2022-12-13 07:28] LABS: BLOOD UREA NITROGEN 14 MG/DL (9-23); CALCIUM LEVEL 9.2 MG/DL (8.3-10.6); CARBON DIOXIDE LEVEL 28 MMOL/L (20-31); CHLORIDE LEVEL 106 MMOL/L (98-107); CREATININE FOR GFR 0.94 MG/DL (0.70-1.30); GLOMERULAR FILTRATION RATE > 60.0 (>35); GLUCOSE, FASTING 104 MG/DL (74-106); POTASSIUM SERUM 4.3 MMOL/L (3.5-5.1); SODIUM LEVEL 141 MMOL/L (136-145)
[2022-12-13 07:57] VITALS: BP 143/64; TEMP 97; O2SAT 95
[2022-12-13] MEDS ORDERED: ASPIRIN 81MG ENTERIC TABLET PO SCH (09:00)
[2022-12-13] MEDS ORDERED: ENOXAPARIN 40MG/0.4ML SYRINGE (J1650 PER 10MG) SC SCH (09:00)
[2022-12-13 11:52] VITALS: BP 136/63; TEMP 97.1; O2SAT 96
[2022-12-13 16:16] VITALS: BP 132/63; TEMP 97.3; O2SAT 96
[2022-12-13] MEDS ORDERED: ATOR1TAB21 PO (16:43)
[2022-12-13] MEDS ORDERED: AMLO25TA PO (16:43)
[2022-12-13] MEDS ORDERED: ASPI81TAEC PO (16:43)
== END 2022-12-13 18:06 | disposition home health service (06) | DRG 66 ==
LOC: M ED 14:15 → M ED INP 20:25 → M PCU 21:54
PROVIDERS: ADMIT Family Medicine; ATTEND Internal Medicine
DX: I63.9 Cerebral infarction, unspecified (principal); I10 Essential (primary) hypertension; K21.9 Gastro-esophageal reflux disease without esophagitis; R53.1 Weakness; N40.0 Benign prostatic hyperplasia without lower urinary tract symptoms; I16.0 Hypertensive urgency; Z66 Do not resuscitate; Z85.46 Personal history of malignant neoplasm of prostate; Z95.0 Presence of cardiac pacemaker; Z92.3 Personal history of irradiation; Z98.41 Cataract extraction status, right eye; Z98.42 Cataract extraction status, left eye; Z79.82 Long term (current) use of aspirin; Z79.899 Other long term (current) drug therapy; Z88.5 Allergy status to narcotic agent